=== PATIENT | female | born 1940 | race Caucasian/White ===

== ENCOUNTER 2019-12-11 09:39 | Outpatient (RCR) | payer MEDICARE, SELFPAY ==
--- NOTE | 2019-12-11 12:16 | PTOPEVAL ---
Thank you for referring this patient to [facility]. Please review, sign, date and return this plan of care AMANDA. I agree with and certify that the following plan of care is medically necessary. Referring Physician Date Admitting Provider: Attending Provider: PHYSICIAN NOT ON STAFF Referring Provider: *PT Outpatient Evaluation Start: 12/11/19 10:02 Freq: Status: Active Protocol: Document 12/11/19 10:00 ANDREINA (Rec: 12/11/19 12:12 ANDREINA [id number]) Therapy Assessment Status Assessment Status Assessment Status Evaluation Evaluation Information Problem Diagnosis gait abnormality Onset 11/28/19 Subjective Information patient has been having pain Query Text:As Reported By Patient/ in the hips and knees for Family years due to arthritis. she is a poor historian due to her history of alzheimers. her daughter is with her answering questions this date. she reports she is getting mixed reports on the correct path for her moms knee pain. she reports she does have a history of falls recently. she reports she is unable to walk or bear weight due to severe increased R knee pain. she reports she has had a weight gain of 50-100lbs from a medication change. Prior Level of Function Comments Additional Prior Level of Function patient attempts to walk Comments without any ad. she lives at home with her . she reports she does have a history of falls. Pain Assessment Timing of Pain Assessment Timing of Pain Assessment Assessment Pain Scale Pain Scale Used Numeric (1 - 10) Self Report Pain Assessment Right Knee(s) Reported Pain Level 0 Greatest Pain Intensity 8 Pain Score Pain Score 0: Self Report Lower Extremity Muscle Strength Testing General Lower Extremity Strength Gross Lower Extremity Strength patient performs sit to stand transfers with the use and need for upper extremity push off. patient presents with inability to achieve full terminal knee extension of the bilateral LE's
--- NOTE | 2019-12-18 10:05 | PCPTNOTE ---
patient cancelled appt today. MAGDALENE
--- NOTE | 2020-01-01 11:51 | PCPTNOTE ---
01/01/20-pt cancelled today's apt, and stated she would call back next week to reschedule. -.
== END 2019-12-27 17:00 | disposition home or self-care (01) ==
LOC: CHSPT 09:39
DX: R26.9 Unspecified abnormalities of gait and mobility (principal)
CPT/HCPCS: 97110; 97163; 97530

== ENCOUNTER 2020-07-16 08:15 | Outpatient (CLI) | payer MEDICARE, SELFPAY ==
[2020-07-17 01:35] LABS: SARS-CoV-2 RNA PCR Negative
== END 2020-07-16 08:16 | disposition home or self-care (01) ==
PROVIDERS: PCP Internal Medicine Geriatric Medicine; Visit Provider Internal Medicine Geriatric Medicine
DX: Z20.828 Contact with and (suspected) exposure to other viral communicable diseases (principal)
CPT/HCPCS: 87635; C9803; U0003

== ENCOUNTER 2020-12-19 14:47 | Outpatient (CLI) | payer MEDICARE, SELFPAY ==
[2020-12-19 15:01] LABS: Add Urine Microscopic? NO; Appearance Urine Clear (Clear); Bilirubin Urine Negative (Negative); Blood Urine Negative (Negative); Color Urine Yellow (Yellow); Glucose Urine UA Negative (Negative); Ketones Urine Negative (Negative); Leukocyte Esterase Ur Negative LEU/UL (Negative); Nitrate Urine Negative (Negative); Protein Urine Negative (Negative); Urobilinogen Urine 0.2 mg/dL (0.2-1.0); pH Urine 6.5 (5.0-8.0)
== END 2020-12-19 14:48 | disposition home or self-care (01) ==
LOC: CHSLAB 14:50
PROVIDERS: PCP Internal Medicine Geriatric Medicine; Visit Provider Emergency Medicine
DX: R35.0 Frequency of micturition (principal); R39.15 Urgency of urination; R32 Unspecified urinary incontinence
CPT/HCPCS: 81003

== ENCOUNTER 2021-02-04 21:42 | Outpatient (NON) | payer MEDICARE, SELFPAY ==
[2021-02-04 21:53] LABS: Add Urine Microscopic? YES; Appearance Urine Clear (Clear); Bilirubin Urine Negative (Negative); Blood Urine 1+ (Negative); Color Urine Yellow (Yellow); Glucose Urine UA Negative (Negative); Ketones Urine Negative (Negative); Leukocyte Esterase Ur Negative (Negative); Nitrate Urine Negative (Negative); Protein Urine Negative (Negative); Urobilinogen Urine 0.2 mg/dL (0.2-1.0); pH Urine 5.5 (5.0-8.0)
[2021-02-04 21:58] LABS: Squamous Epithelial Cell Urine Rare /hpf (Few); WBC Urine 0-3 /hpf (0-3)
[2021-02-04 21:59] LABS: Bacteria Urine Trace /hpf
== END 2021-02-04 21:43 | disposition home or self-care (01) ==
LOC: CHSLAB 21:44
PROVIDERS: Visit Provider Internal Medicine Geriatric Medicine
DX: R30.0 Dysuria (principal)
CPT/HCPCS: 81001; 87086

== ENCOUNTER 2021-03-13 10:24 | Inpatient (IN) | payer MEDICARE, SELFPAY ==
[2021-03-13] VITALS (19 sets, daily range): BP systolic 115–158; BP diastolic 55–94; PULSE 85–115; RESP 18–40; TEMP 36.3–38.3; O2SAT 90–98; BMI 36.3
--- NOTE | ~2021-03-13 | CT_ITS ---
EXAMINATION: CT chest abdomen pelvis w con DATE: 03/13/2021 12:36 INDICATION: Lactic acidosis. Leukocytosis. Nausea and vomiting. TECHNIQUE: Computed tomography (CT) of the chest, abdomen, and pelvis was performed with 100 mL Omnip aque 350 intravenous contrast. Automated exposure control and iterative reconstruction technique were employed. The dose-length product was 1657.44 mGy-cm. COMPARISON: None FINDINGS: CHEST CT: There are patchy airspace and groundglass opacities in the lower lobes and right middle lobe. There i s mild atelectasis in the upper lobes. No pleural effusion. There is a 12 mm nodule in left thyroid l obe, likely not clinically significant. The heart size is normal. There is a left chest wall pacer wi th leads in the right atrium and right ventricle. No pericardial effusion. There is moderate thoracic spondylosis and severe cervical spondylosis. ABDOMEN/PELVIS CT: The liver is normal. There are changes of cholecystectomy. There is a small sliding hiatal hernia. Th e spleen, pancreas, and adrenal glands are normal. There are cysts in the kidneys measuring up to 9.8 cm on the right. There is a large volume of stool in the colon. There are no dilated loops of bowel. The appendix is normal. There are no pathologically enlarged lymph nodes. There is no free intraperi toneal fluid. There is a total left hip arthroplasty. There is severe lumbar spondylosis. IMPRESSION: 1. Patchy airspace and groundglass opacities in the lower lobes and right middle lobe, consistent wit h pneumonia. 2. Small sliding hiatal hernia. Reviewed, dictated and finalized at location A. IMPRESSION: 1. Patchy airspace and groundglass opacities in the lower lobes and right middl e lobe, consistent with pneumonia. 2. Small sliding hiatal hernia.
--- NOTE | ~2021-03-13 | XR_ITS ---
EXAMINATION: XR chest 1V portable DATE: 03/13/2021 10:59 INDICATION: Aspiration pneumonia. TECHNIQUE: A single frontal view of the chest was obtained. COMPARISON: None. FINDINGS: There is mild scarring at the lung apices. There are mild airspace opacities in the mid and lower lung zones, worst at left lung base. There is a small left pleural effusion. No pneumothorax. The heart size is normal. There is a left chest wall pacer with leads in the right atrium and right v entricle. IMPRESSION: 1. Mild airspace opacities in the lower lung zones, consistent with atelectasis versus pneumonia. 2. Small left pleural effusion. Reviewed, dictated and finalized at location A.
[2021-03-13 11:07] LABS: Basophils Percent Auto 0.2 % (0.2-1.2); Eosinophils Percent Auto 0.1 % (0-4.4); Hematocrit 39.8 % (37.0-47.0); Hemoglobin 13.3 g/dL (12.0-15.0); Immature Granulocyte Absolute 0.04 K/mm3 (0.00-0.031); Immature Granulocyte Percent A 0.3 % (0-0.5); Lymphocytes Percent Auto 2.5 % (18.3-44.2); Mean Corpuscular HGB Conc 33.4 g/dl (32-36); Mean Corpuscular Hemoglobin 29.2 pg (26-34); Mean Corpuscular Volume 87.5 fl (80-100); Mean Platelet Volume 10.3 fl (7.4-10.4); Monocytes Absolute Auto 0.5 K/mm3 (0.1-0.6); Monocytes Percent Auto 3.8 % (2.6-8.5); Neutrophils Absolute Auto 11.4 K/mm3 (1.3-6.7); Neutrophils Percent Auto 93.1 % (45.5-73.1); Platelet Count Result 284 k/mm3 (150-375); Red Blood Count 4.55 M/mm3 (4.2-5.4); Red Cell Distribution Width 13.2 % (11.5-14.5); White Blood Count 12.2 K/mm3 (4.5-10.0)
[2021-03-13 11:14] LABS: Add Urine Microscopic? YES; Appearance Urine Clear (Clear); Bilirubin Urine Negative (Negative); Blood Urine 2+ (Negative); Color Urine Yellow (Yellow); Glucose Urine UA Negative (Negative); Ketones Urine Negative (Negative); Leukocyte Esterase Ur Negative LEU/UL (Negative); Mucus Urine Rare /lpf; Nitrate Urine Negative (Negative); Protein Urine 1+ mg/dL (Negative); Specific Grav Ur 1.024 (1.001-1.035); Squamous Epithelial Cell Urine Few /hpf (Few); Urobilinogen Urine Negative mg/dL (<2.0); WBC Urine 0-3 /hpf
[2021-03-13 11:20] LABS: Prothrombin Time 13.3 Seconds (11.1-14.7)
[2021-03-13 11:21] LABS: Lactic Acid Reflex 4.4 mmol/L (0.7-2.1)
[2021-03-13 11:22] LABS: Partial Thromboplastin Time 27.8 SECONDS (22.3-36.8)
[2021-03-13 11:25] LABS: Alanine Aminotransferase 22 U/L (4-35); Albumin Level 4.3 g/dL (3.5-5.1); Alkaline Phosphatase 70 U/L (38-126); Anion Gap 12 mmol/L (8-16); Aspartate Amino Transferase 28 U/L (14-36); Bilirubin,Total 0.5 mg/dL (0.2-1.3); Blood Urea Nitrogen 22 mg/dL (7-17); CRP 3.7 mg/dL (<1.0); Calcium 8.7 mg/dL (8.4-10.2); Carbon Dioxide 22 mmol/L (22-30); Chloride 100 mmol/L (98-107); Estimated CRCL calculation 56 ml/min; Estimated Glomerular Filt Rate > 60; Glucose 124 mg/dL (65-105); Potassium 3.6 mmol/L (3.4-5.0); Sodium 134 mmol/L (137-145)
--- NOTE | 2021-03-13 12:08 | ECG_ITS ---
Measurements Intervals [place] Rate: 96 P: 38 NV: 183 QRS: 7 QRSD: 97 T: 44 QT: 335 QTc: 423 Interpretive Statements SINUS RHYTHM BORDERLINE R WAVE PROGRESSION, ANTERIOR LEADS BORDERLINE ST-T WAVE ABNORMALITY- ANT/INF LEADS BASELINE ARTIFACT- II, III, AVR, AVL, AVF BORDERLINE ECG Electronically Signed On 03-13-2021 15:10:39 CDT by Aly Cottrell D.O.
--- NOTE | 2021-03-13 12:09 | ED.GENADULT ---
HPI - General Adult General Chief complaint: Nausea/Vomiting/Diarrhea <KARTIK Churchill BC - Last Filed: 03/13/21 14:17> Stated complaint: N/V/FEVER <KARTIK Churchill BC - Last Filed: 03/13/21 14:17> Time Seen by Provider: 03/13/21 11:38 <KARTIK Churchill BC - Last Filed: 03/13/21 14:17> Source: family <KARTIK Churchill BC - Last Filed: 03/13/21 14:17> Limitations: no limitations <KARTIK Churchill BC - Last Filed: 03/13/21 14:17> History of Present Illness HPI narrative: Patient presents for evaluation of nausea and vomiting that started last night around 1930. She is here in the company of her daughter who serves as primary historian. Patient has underlying Alzheimer's and cannot provide me with any details related to her history. Daughter indicates that patient's baseline orientation services oriented to person. Patient has not answered any questions for her daughter since last night. Patient and her live at home and have 24-hour supervision with caretakers. Daughter was contacted last evening as pt had multiple episodes of vomiting. When patient's daughter arrived at the home temperature was 100.3 ?F, which increased to 101.8F an hour later. Indicates that patient has had 13 episodes of vomiting since last night. She has not been able to tell daughter whether she is experiencing any abdominal pain. Daughter states that pt and her consumed the same food for dinner and pt's is asymptomatic. Last bowel movement was last night, solid, large in size. Daughter states that patient has a history of arthritis, for which she was taking ibuprofen. Patient subsequently developed symptoms consistent with GERD and was placed on PPI. Ibuprofen was held and then restarted at lower dose and frequency. Daughter gave pt tylenol last night and she had not had any antipyretics today. Pt is past due for colonoscopy but her provider advised against pursuing at this stage of her life as her last colonoscopy was normal and there was concern for how pt would tolerate anesthesia with hx of Alzheimer's. Daughter states that pt had some chest pain last night but it was thought that her symptoms were 2/2 GERD. <KARTIK Churchill BC - Last Filed: 03/13/21 14:17> Related Data Home medications: Home Medications Medication Instructions Recorded Confirmed acetaminophen 500 mg PO Q6H PRN 03/13/21 03/13/21 ascorbic acid (vitamin C) 1 g PO DAILY 03/13/21 03/13/21 calcium carbonate-vitamin D3 1 tablet PO DAILY 03/13/21 03/13/21 [Calcium 500 + D] escitalopram oxalate 20 mg PO DAILY 03/13/21 03/13/21 nortriptyline 50 mg PO DAILY 03/13/21 03/13/21 oxycodone 5 mg PO PRN 03/13/21 03/13/21 pantoprazole 40 mg PO DAILY 03/13/21 03/13/21 risperidone 0.5 mg PO DAILY 03/13/21 03/13/21 <KARTIK Churchill BC - Last Filed: 03/13/21 14:17> Allergies/adverse reactions: Allergies Allergy/AdvReac Type Severity Reaction Status Date / Time donepezil Allergy Rash Verified 03/13/21 11:03 <KARTIK Churchill BC - Last Filed: 03/13/21 14:17> Review of Systems Review of Systems: ROS unobtainable: Yes unobtainable due to mental status <KARTIK Churchill BC - Last Filed: 03/13/21 14:17> [facility] Past Medical History Medical History: Medical History Alzheimer's dementia Arthritis GERD (gastroesophageal reflux disease) <KARTIK Churchill BC - Last Filed: 03/13/21 14:17> Social History Social History: Social History Substance use: never Living arrangements: with family Gender identity (if verbalized by the patient): Female Sexual Orientation (if Verbalized by the Patient): Straight or Heterosexual <KARTIK Churchill BC - Last Filed: 03/13/21 14:17> Exam Narrative: Exam Narrative: GENERAL:
[2021-03-13] MEDS: SODIUM CHLORIDE 0.9% IV 500 ML 999 ML IV CONT ×2 (12:25→14:50)
[2021-03-13] MEDS: SODIUM CHLORIDE 0.9% IV 1,000 ML 999 ML (12:26)
[2021-03-13 13:05] LABS: Troponin I < 0.012 ng/mL (0.000-0.034)
[2021-03-13] MEDS: ACETAMINOPHEN 325 MG TABLET 650 MG PO (13:12)
[2021-03-13 14:03] LABS: Reflex Lactic Acid Yes or No Add Lactic
[2021-03-13 14:43] LABS: Lactic Acid 2.6 mmol/L (0.7-2.1)
--- NOTE | 2021-03-13 14:45 | PM.IMHP ---
H&P: HPI History of Present Illness Date/Time: 03/13/21 14:45 Chief Complaint: Fever. Narrative: This is a 80-year-old female who is otherwise quite healthy aside from dementia who presented to the emergency department earlier today via EMS from home for evaluation of a fever. Due to her dementia she is unable to provide a history and as such all of the following is obtained via a review of her electronic medical records as well as discussions with her daughter, Jane Land, who is at bedside. Jane is also her power of deputy commonwealth's attorney. Unfortunately both the patient and her suffer from dementia and over the last several months they have had caretakers at home 24 hours a day. At baseline the patient is pleasant and cooperative but is quite forgetful and repetitive. She ambulates with a walker with gait belt and 1 assist. These past few weeks Jane has noticed that the patient seems to have increasing issues with word finding and is a bit more forgetful and at times paranoid. Sometime last evening she began vomiting and she reportedly had 13 episodes of emesis throughout the night. This morning she spiked a temperature to 101.8? Fahrenheit and she was brought in for evaluation. On arrival to the emergency department she was tachycardic, tachypneic, and febrile and meets criteria for severe sepsis. Her urinalysis was unremarkable and chest x-ray demonstrated findings of atelectasis versus pneumonia. A subsequent CT of the chest, abdomen, and pelvis showed patchy airspace ground-glass opacities in the lower lobes and right middle lobe consistent with pneumonia. Daughter Jane, who is a registered nurse, thinks that the patient may very well have aspirated last night with all of the vomiting. She has not noticed her mother having issues with eating or drinking and does not believe that she has had issues with dysphagia at home. She has not had any sick contacts and all family members and caretakers have been vaccinated for COVID-19, including the patient. At the time my evaluation the patient has no complaints but she takes a long time to process my questions and a majority of the questions asked of her go unanswered. Caregivers and family members have not notice her coughing or sneezing. No mention of diarrhea. Of note the patient was hospitalized at [place] in early 2020 for a left wrist fracture that was repaired and at that time she had issues with delirium and frequently attempted to get out of the bed, mainly during the nighttime. Review of Systems Review of Systems: Narrative: A review of systems was attempted but unable to be completed accurately given her underlying dementia and clinical condition as detailed in HPI. [facility] Past Medical History Medical History (Updated 03/13/21 @ 17:00 by Cristina Chaney PA-C) Alzheimer's dementia History of delirium related to hospitalizations. Arthritis Severe arthritis of right knee and hip. Gastroesophageal reflux disease History of anxiety Surgical History Surgical History (Updated 03/13/21 @ 16:52 by Cristina Chaney PA-C) History of cardiac pacemaker History of cholecystectomy History of surgery on left wrist (~11/2020) ORIF left wrist fracture performed at [place]. History of tonsillectomy Family History Family History (Updated 03/13/21 @ 16:53 by Cristina Chaney PA-C) Father Chronic lymphocytic leukemia Mother Liver failure Arthritis Social History Social History (Updated 03/13/21 @ 16:55 by Cristina Chaney PA-C) Social History: The patient is and lives with her in [place], [place]. They have 3 grown children. Caretakers are in the home 24 hours a day. She ambulates with a walker and gait belt with 1 assist. 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 Lifelong nonsmoker. No alcohol or illicit substance use. Her daughter Jane Land is her healthcare power of deputy commonwealth's attorney. Code status: Full cod
[2021-03-13 15:33] LABS: Troponin I < 0.012 ng/mL (0.000-0.034)
--- NOTE | 2021-03-13 18:39 | PC.NURSE ---
This patient, Kimmie Li, was admitted to IMU Room 205-01. Patient/family oriented to hospital policies and general routines including ID bracelet, bed and alarms, visiting hours, pain management, procedures, bathroom and other care routines, personal items, smoking policy, room service/diet, and visiting hours. Information on how to activate the Rapid Response Team has been discussed. Patient/Family are encouraged to report perceived risks to care and to ask questions if they do not understand what they are told or what they should do.
[2021-03-13] MEDS: risperiDONE 0.5 MG TABLET PO (20:38)
[2021-03-13] MEDS: NORTRIPTYLINE HCL 25 MG CAPSULE 50 MG PO (20:39)
[2021-03-13] MEDS: MELATONIN 5 MG TABLET 10 MG PO (20:42)
[2021-03-13] MEDS: guaiFENesin 12 HR 600 MG TABCR PO (20:42)
[2021-03-13] MEDS: DOCUSATE SODIUM 100 MG CAPSULE PO (20:43)
[2021-03-14] VITALS (12 sets, daily range): BP systolic 131–170; BP diastolic 66–74; PULSE 75–98; RESP 14–20; TEMP 36.1–36.9; O2SAT 93–98
[2021-03-14 06:03] LABS: Basophils Percent Auto 0.1 % (0.2-1.2); Eosinophils Absolute Auto 0.2 K/mm3 (0-0.3); Eosinophils Percent Auto 1.2 % (0-4.4); Hematocrit 34.3 % (37.0-47.0); Hemoglobin 11.6 g/dL (12.0-15.0); Immature Granulocyte Absolute 0.04 K/mm3 (0.00-0.031); Immature Granulocyte Percent A 0.3 % (0-0.5); Lymphocytes Absolute Auto 1.15 K/mm3 (0.9-3.2); Lymphocytes Percent Auto 8.5 % (18.3-44.2); Mean Corpuscular HGB Conc 33.8 g/dl (32-36); Mean Corpuscular Hemoglobin 29.4 pg (26-34); Mean Corpuscular Volume 86.8 fl (80-100); Monocytes Absolute Auto 0.8 K/mm3 (0.1-0.6); Monocytes Percent Auto 5.9 % (2.6-8.5); Neutrophils Absolute Auto 11.4 K/mm3 (1.3-6.7); Platelet Count Result 258 k/mm3 (150-375); Red Blood Count 3.95 M/mm3 (4.2-5.4); Red Cell Distribution Width 13.1 % (11.5-14.5); White Blood Count 13.5 K/mm3 (4.5-10.0)
[2021-03-14 06:18] LABS: Anion Gap 5 mmol/L (8-16); Blood Urea Nitrogen 13 mg/dL (7-17); Calcium 8.5 mg/dL (8.4-10.2); Carbon Dioxide 28 mmol/L (22-30); Chloride 103 mmol/L (98-107); Estimated CRCL calculation 57 ml/min; Estimated Glomerular Filt Rate > 60; Glucose 112 mg/dL (65-105); Magnesium 1.9 mg/dL (1.6-2.3); Potassium 3.7 mmol/L (3.4-5.0); Sodium 136 mmol/L (137-145)
--- NOTE | 2021-03-14 08:12 | PCOTNOTE ---
Attempted OT evaluation. Per nursing, pt sleeping and requested therapy try later. Will continue to attempt.
--- NOTE | 2021-03-14 08:14 | PCPTNOTE ---
Attempted PT evaluation. Per nursing, pt sleeping and requested therapy try later. Will try again at a later date/time.
--- NOTE | 2021-03-14 11:45 | PM.IMPN ---
Progress Note: A&P Assessment and Plan (1) Bilateral pneumonia: Qualifiers: Pneumonia type: aspiration pneumonia Aspiration pneumonia type: unspecified Lung location: lower lobe of lung Qualified Code(s): J69.0 - Pneumonitis due to inhalation of food and vomit Code(s): J18.9 - Pneumonia, unspecified organism Status: Acute Assessment and Plan: 03/13 Zosyn begun in the ED 03/14 switched to Unasyn and consider discharge on Augmentin if she continues to improve (2) Alzheimer's dementia: Qualifiers: Alzheimer's disease onset: late-onset Dementia behavioral disturbance: with behavioral disturbance Qualified Code(s): G30.1 - Alzheimer's disease with late onset; F02.81 - Dementia in other diseases classified elsewhere with behavioral disturbance Code(s): G30.9 - Alzheimer's disease, unspecified; F02.80 - Dementia in other diseases classified elsewhere without behavioral disturbance Status: Acute Assessment and Plan: Discussed with son the given her history of hospital do's delirium it would be best to planned for early discharge perhaps 03/15 (3) Sepsis: Qualifiers: Sepsis acute organ dysfunction status: without acute organ dysfunction Sepsis type: sepsis due to unspecified organism Qualified Code(s): A41.9 - Sepsis, unspecified organism Code(s): A41.9 - Sepsis, unspecified organism Status: Acute Assessment and Plan: Resolved (4) Gastroesophageal reflux disease: Qualifiers: Esophagitis presence: esophagitis presence not specified Qualified Code(s): K21.9 - Gastro-esophageal reflux disease without esophagitis Code(s): K21.9 - Gastro-esophageal reflux disease without esophagitis Status: Acute Assessment and Plan: Continue home regimen Subjective Date/time seen: 03/14/21 11:45 Interval history: Admitted 03/14 with probable aspiration pneumonia. 03/14: Nonverbal. No issues reported overnight. Son at bedside. D/w staffing account manager. Review of Systems Review of Systems: ROS unobtainable: Yes unobtainable due to medical condition Exam Narrative: Exam Narrative: HEENT: EOMI, PERRL, sclerae nonicteric, pharyngeal mucosa pink and intact NECK: No JVD CHEST: Slightly coarse BS bilateral LLs. Normal effort. HEART: NL S1/S2, regular, no murmur ABDOMEN: BS+, soft, nontender, no mass, no bruits EXTREMITIES: No cyanosis, edema, or clubbing NEUROLOGIC: CN intact and symmetric to inspection. MUSCULOSKELETAL: Tone and strength symmetric. PSYCH: Drowsy. Follows simple commands. Oriented to person only. Objective Data Vital Signs Vital Signs: Vital Signs - 24 hr 03/13/21 12:00 03/13/21 12:15 03/13/21 12:45 Temperature Pulse Rate 114 H 103 H 98 Respiratory Rate 28 H 25 H 29 H Blood Pressure 123/83 130/66 115/63 Pulse Oximetry 92 91 94 03/13/21 14:08 03/13/21 14:09 03/13/21 15:26 Temperature 98.4 F Pulse Rate 97 93 Respiratory Rate 18 18 Blood Pressure 115/63 132/63 Pulse Oximetry 98 95 03/13/21 15:51 03/13/21 16:00 03/13/21 18:00 Temperature 97.3 F L Pulse Rate 91 92 91 Respiratory Rate 18 18 Blood Pressure 119/55 L Pulse Oximetry 92 92 03/13/21 20:00 03/13/21 22:00 03/13/21 23:44 Temperature 97.5 F L 97.7 F Pulse Rate 91 85 86 Respiratory Rate 18 18 Blood Pressure 136/85 120/57 L Pulse Oximetry 95 94 03/14/21 00:00 03/14/21 02:00 03/14/21 03:59 Temperature 97.6 F Pulse Rate 85 79 81 Respiratory Rate 18 20 Blood Pressure 142/73 H Pulse Oximetry 94 95 03/14/21 04:00 03/14/21 06:00 03/14/21 07:17 Temperature 97.3 F L Pulse Rate 80 88 75 Respiratory Rate 20 18 Blood Pressure 155/66 H Pulse Oximetry 95 97 03/14/21 08:00 03/14/21 10:00 03/14/21 10:05 Temperature Pulse Rate 77 75 Respiratory Rate 18 Blood Pressure Pulse Oximetry 97 94 Intake/Output Intake/Output: Intake & Output 03/11/21 03/12/21 03/13/21 03/14/21 23
[2021-03-14] MEDS: ASCORBIC ACID 500 MG TABLET 1000 MG PO (11:52)
[2021-03-14] MEDS: guaiFENesin 12 HR 600 MG TABCR PO ×2 (11:52→23:02)
[2021-03-14] MEDS: ESCITALOPRAM OXALATE 10 MG TABLET 20 MG PO (11:52)
[2021-03-14] MEDS: PANTOPRAZOLE 40 MG TABLET PO (11:53)
[2021-03-14] MEDS: AMPICILLIN SULB 3 GM/NS 100 ML 3 GM/100 ML VIAL IVPB ×3 (13:26→23:03)
--- NOTE | 2021-03-14 16:15 | PC.NURSE ---
This patient, Kimmie Li, was received from [imu ] on 03/14/21 at 1742. Patient/family oriented to unit policies and routines
--- NOTE | 2021-03-14 16:21 | PC.NURSE ---
This patient, Kimmie Li, was transferred to [[facility] ] on 03/14/21 at 1621. Personal belongings sent with patient. Report given to [Lainey ]. Appropriate documentation sent with patient.
[2021-03-14] MEDS: MELATONIN 5 MG TABLET 10 MG PO (23:02)
[2021-03-14] MEDS: risperiDONE 0.5 MG TABLET PO (23:02)
[2021-03-14] MEDS: DOCUSATE SODIUM 100 MG CAPSULE PO (23:02)
[2021-03-14] MEDS: NORTRIPTYLINE HCL 25 MG CAPSULE 50 MG PO (23:02)
[2021-03-15 05:23] VITALS: BP 154/70; PULSE 82; RESP 18; TEMP 36; O2SAT 95
[2021-03-15 06:14] LABS: Hematocrit 37.4 % (37.0-47.0); Hemoglobin 12.3 g/dL (12.0-15.0); Mean Corpuscular HGB Conc 32.9 g/dl (32-36); Mean Corpuscular Volume 88.2 fl (80-100); Mean Platelet Volume 10.3 fl (7.4-10.4); Platelet Count Result 284 k/mm3 (150-375); Red Blood Count 4.24 M/mm3 (4.2-5.4); Red Cell Distribution Width 13.1 % (11.5-14.5); White Blood Count 10.4 K/mm3 (4.5-10.0)
[2021-03-15 06:32] LABS: Anion Gap 9 mmol/L (8-16); Blood Urea Nitrogen 12 mg/dL (7-17); Calcium 8.9 mg/dL (8.4-10.2); Carbon Dioxide 26 mmol/L (22-30); Chloride 102 mmol/L (98-107); Estimated CRCL calculation 73 ml/min; Estimated Glomerular Filt Rate > 60; Glucose 104 mg/dL (65-105); Potassium 3.5 mmol/L (3.4-5.0); Sodium 137 mmol/L (137-145)
[2021-03-15] MEDS: AMPICILLIN SULB 3 GM/NS 100 ML 3 GM/100 ML VIAL IVPB ×4 (06:55→23:59)
[2021-03-15] MEDS: PANTOPRAZOLE 40 MG TABLET PO (09:04)
[2021-03-15] MEDS: guaiFENesin 12 HR 600 MG TABCR PO ×2 (09:05→20:35)
[2021-03-15] MEDS: ASCORBIC ACID 500 MG TABLET 1000 MG PO (09:05)
[2021-03-15] MEDS: ESCITALOPRAM OXALATE 10 MG TABLET 20 MG PO (09:05)
--- NOTE | 2021-03-15 10:54 | PM.IMPN ---
Progress Note: A&P Assessment and Plan (1) Sepsis: Qualifiers: Sepsis acute organ dysfunction status: without acute organ dysfunction Sepsis type: sepsis due to unspecified organism Qualified Code(s): A41.9 - Sepsis, unspecified organism Code(s): A41.9 - Sepsis, unspecified organism Status: Acute Assessment and Plan: The patient is a 80-year-old woman with a history of dementia, who presented to the emergency room with nausea, vomiting overnight. Given the patient's daughter arrived to further evaluate her at the house she found her temperature was elevated 101.8? inside to bring her to the emergency room for further evaluation. Patient was found to have a fever, tachycardic, increased respiratory rate, elevated blood pressure 142/69, and pulse ox was 93% on room air. Leukocytosis 12,200 , elevated neutrophils, hyponatremia at 134, Cr 0.7, elevated BUN 22, Lactic 4.4, improved 2.6 with IV fluid hydration. Elevated CRP 3.7. Troponin normal x2. UA showing microscopic blood and RBCs but no infection. CT Chest/Abd/Pelvis showed Patchy airspace and groundglass opacities in the lower lobes and right middle lobe, consistent with pneumonia. The patient was admitted and started on IV Zosyn for aspiration pneumonia. 03/14/21, the patient was switched to IV Unasyn for a broader spectrum of coverage for Aspiration. The patient was evaluated today and is still having some productive cough, history hard to be obtained secondary to Alzheimers. Will continue on IV Unasyn overnight, recheck labs in the morning, continue monitoring vital signs and possibly discharge home tomorrow with care givers and family. The patient and Daughter Jane understand and agree with the plan. All questions answered. (2) Bilateral pneumonia: Qualifiers: Pneumonia type: aspiration pneumonia Aspiration pneumonia type: unspecified Lung location: lower lobe of lung Qualified Code(s): J69.0 - Pneumonitis due to inhalation of food and vomit Code(s): J18.9 - Pneumonia, unspecified organism Status: Acute Assessment and Plan: 03/13 Zosyn begun in the ED 03/14 switched to Unasyn 03/15 continue Unasyn at this time. Consider discharge on Augmentin if she continues to improve (3) Gastroenteritis: Code(s): K52.9 - Noninfective gastroenteritis and colitis, unspecified Status: Acute Assessment and Plan: No more N/V or symptoms of Abd pain/diarrhea. Resolved. (4) Alzheimer's dementia: Qualifiers: Alzheimer's disease onset: late-onset Dementia behavioral disturbance: with behavioral disturbance Qualified Code(s): G30.1 - Alzheimer's disease with late onset; F02.81 - Dementia in other diseases classified elsewhere with behavioral disturbance Code(s): G30.9 - Alzheimer's disease, unspecified; F02.80 - Dementia in other diseases classified elsewhere without behavioral disturbance Status: Acute Assessment and Plan: Continue Melatonin at night, sitter in the room and plan for discharge tomorrow. (5) Gastroesophageal reflux disease: Qualifiers: Esophagitis presence: esophagitis presence not specified Qualified Code(s): K21.9 - Gastro-esophageal reflux disease without esophagitis Code(s): K21.9 - Gastro-esophageal reflux disease without esophagitis Status: Acute Assessment and Plan: Continue home regimen Time Spent With Patient Time with patient: 25 - 35 minutes Subjective Date/time seen: 03/15/21 10:54 Interval history: Date of Service 03/15/21: Review of Systems Review of Systems: All systems reviewed & are unremarkable except as noted in HPI and below Exam Narrative: Exam Narrative: General: 80-year-old woman sitting up in bed, with sitter in the room. Appears comfortable. In no acute distress. Skin: No jaundice or cyanosis. Good skin turgor. Neck: Full range of motion. Supple. Respiratory: Inspiratory rhonchi to
[2021-03-15 14:22] VITALS: BP 137/84; PULSE 86; RESP 18; TEMP 36.2; O2SAT 97
[2021-03-15 19:53] VITALS: BP 160/82; PULSE 82; RESP 18; TEMP 36.3; O2SAT 93
[2021-03-15] MEDS: risperiDONE 0.5 MG TABLET PO (20:36)
[2021-03-15] MEDS: MELATONIN 5 MG TABLET 10 MG PO (20:36)
[2021-03-15] MEDS: NORTRIPTYLINE HCL 25 MG CAPSULE 50 MG PO (20:36)
[2021-03-15] MEDS: DOCUSATE SODIUM 100 MG CAPSULE PO (20:36)
[2021-03-16 05:20] VITALS: BP 158/78; PULSE 82; RESP 18; TEMP 36.2; O2SAT 97
[2021-03-16 05:40] LABS: Basophils Percent Auto 0.3 % (0.2-1.2); Eosinophils Absolute Auto 0.3 K/mm3 (0-0.3); Eosinophils Percent Auto 2.8 % (0-4.4); Hematocrit 34.5 % (37.0-47.0); Hemoglobin 11.3 g/dL (12.0-15.0); Immature Granulocyte Absolute 0.04 K/mm3 (0.00-0.031); Immature Granulocyte Percent A 0.4 % (0-0.5); Lymphocytes Absolute Auto 1.41 K/mm3 (0.9-3.2); Lymphocytes Percent Auto 14.7 % (18.3-44.2); Mean Corpuscular HGB Conc 32.8 g/dl (32-36); Mean Corpuscular Hemoglobin 28.5 pg (26-34); Mean Corpuscular Volume 87.1 fl (80-100); Mean Platelet Volume 10.4 fl (7.4-10.4); Monocytes Absolute Auto 0.8 K/mm3 (0.1-0.6); Monocytes Percent Auto 8.2 % (2.6-8.5); Neutrophils Absolute Auto 7.1 K/mm3 (1.3-6.7); Neutrophils Percent Auto 73.6 % (45.5-73.1); Platelet Count Result 309 k/mm3 (150-375); Red Blood Count 3.96 M/mm3 (4.2-5.4); White Blood Count 9.6 K/mm3 (4.5-10.0)
[2021-03-16] MEDS: AMPICILLIN SULB 3 GM/NS 100 ML 3 GM/100 ML VIAL IVPB ×2 (05:44→12:17)
[2021-03-16 05:54] LABS: Anion Gap 7 mmol/L (8-16); Blood Urea Nitrogen 9 mg/dL (7-17); Calcium 8.7 mg/dL (8.4-10.2); Carbon Dioxide 27 mmol/L (22-30); Chloride 103 mmol/L (98-107); Estimated CRCL calculation 55 ml/min; Estimated Glomerular Filt Rate > 60; Glucose 102 mg/dL (65-105); Magnesium 1.9 mg/dL (1.6-2.3); Potassium 3.5 mmol/L (3.4-5.0); Sodium 137 mmol/L (137-145)
[2021-03-16 08:00] VITALS: BP 146/72; PULSE 90; RESP 18; TEMP 36.3; O2SAT 96
[2021-03-16] MEDS: guaiFENesin 12 HR 600 MG TABCR PO (10:03)
[2021-03-16] MEDS: ESCITALOPRAM OXALATE 10 MG TABLET 20 MG PO (10:03)
[2021-03-16] MEDS: ASCORBIC ACID 500 MG TABLET 1000 MG PO (10:03)
[2021-03-16] MEDS: PANTOPRAZOLE 40 MG TABLET PO (10:04)
--- NOTE | 2021-03-16 10:32 | PM.DS ---
DS: Admitting Diagnosis Admitting Diagnosis Admitting Diagnosis: Fever DS: Discharge Diagnosis Discharge Diagnosis (1) Sepsis: Qualifiers: Sepsis acute organ dysfunction status: without acute organ dysfunction Sepsis type: sepsis due to unspecified organism Qualified Code(s): A41.9 - Sepsis, unspecified organism Code(s): A41.9 - Sepsis, unspecified organism Status: Acute Assessment and Plan: The patient is a 80-year-old woman with a history of dementia, who presented to the emergency room with nausea, vomiting overnight. Given the patient's daughter arrived to further evaluate her at the house she found her temperature was elevated 101.8? inside to bring her to the emergency room for further evaluation. Patient was found to have a fever, tachycardic, increased respiratory rate, elevated blood pressure 142/69, and pulse ox was 93% on room air. Leukocytosis 12,200 , elevated neutrophils, hyponatremia at 134, Cr 0.7, elevated BUN 22, Lactic 4.4, improved 2.6 with IV fluid hydration. Elevated CRP 3.7. Troponin normal x2. UA showing microscopic blood and RBCs but no infection. CT Chest/Abd/Pelvis showed Patchy airspace and groundglass opacities in the lower lobes and right middle lobe, consistent with pneumonia. The patient was admitted and started on IV Zosyn for aspiration pneumonia. 03/14/21, the patient was switched to IV Unasyn for a broader spectrum of coverage for Aspiration. The patient is feeling better at this time, WBC normalized, resting comfortably on room air, afebrile, nontachycardic. The patient is stable at this time to be discharged home to continue PO Augmentin for aspiration pneumonia from gastroenteritis/vomiting. The patients family understand and agree with the plan. She will be going home with 08/05 caregivers. Follow up with PCP. (2) Bilateral pneumonia: Qualifiers: Aspiration pneumonia type: unspecified Lung location: lower lobe of lung Pneumonia type: aspiration pneumonia Qualified Code(s): J69.0 - Pneumonitis due to inhalation of food and vomit Code(s): J18.9 - Pneumonia, unspecified organism Status: Acute (3) Gastroenteritis: Code(s): K52.9 - Noninfective gastroenteritis and colitis, unspecified Status: Acute Assessment and Plan: No more N/V or symptoms of Abd pain/diarrhea. Resolved. (4) Alzheimer's dementia: Qualifiers: Alzheimer's disease onset: late-onset Dementia behavioral disturbance: with behavioral disturbance Qualified Code(s): G30.1 - Alzheimer's disease with late onset; F02.81 - Dementia in other diseases classified elsewhere with behavioral disturbance Code(s): G30.9 - Alzheimer's disease, unspecified; F02.80 - Dementia in other diseases classified elsewhere without behavioral disturbance Status: Acute (5) Gastroesophageal reflux disease: Qualifiers: Esophagitis presence: esophagitis presence not specified Qualified Code(s): K21.9 - Gastro-esophageal reflux disease without esophagitis Code(s): K21.9 - Gastro-esophageal reflux disease without esophagitis Status: Acute DS: Summary Hospital Course Hospital Course: See above Status at Discharge Cognitive/behavioral status at discharge: Stable, improved. Time Spent with Patient Time attestation: Total time spent providing and/or coordinating discharge services: 37 Time spent: Greater than 30 minutes Exam Narrative: Exam Narrative: General: 80-year-old woman sitting up in bed eating breakfast. Appears comfortable. In no acute distress. Skin: No jaundice or cyanosis. Good skin turgor. Neck: Full range of motion. Supple. Respiratory: Improved, only slight inspiratory rhonchi to bilateral lower lung barker posteriorly. No wheezing. No bony chest wall tenderness. Cardiovascular: The heart has a regular rate and rhythm without murmur. Lower extremities: No lower extremity edema. Distal pulses are easily pal
[2021-03-16 16:00] VITALS: BP 142/73; PULSE 88; RESP 18; TEMP 36.5; O2SAT 97
--- NOTE | 2021-03-22 13:10 | PC.NURSE ---
Blood cx are negative.
== END 2021-03-16 16:50 | disposition home or self-care (01) | DRG 871 ==
LOC: ANHED 14:26 → ANHIMU 15:10 → ANH3MED 03-14 16:20
PROVIDERS: Emergency Medicine; Physician Assistant; Admitting Provider Internal Medicine; Emergency Provider Nurse Practitioner; PCP Internal Medicine Geriatric Medicine; Visit Provider Internal Medicine
DX: A41.9 Sepsis, unspecified organism (principal); J69.0 Pneumonitis due to inhalation of food and vomit; E87.1 Hypo-osmolality and hyponatremia; G30.9 Alzheimer's disease, unspecified; R65.20 Severe sepsis without septic shock; F02.80 Dementia in other diseases classified elsewhere, unspecified severity, without behavioral disturbance, psychotic disturbance, mood disturbance, and anxiety; K21.9 Gastro-esophageal reflux disease without esophagitis; F41.9 Anxiety disorder, unspecified; M17.11 Unilateral primary osteoarthritis, right knee; M16.11 Unilateral primary osteoarthritis, right hip; Z95.0 Presence of cardiac pacemaker; Z90.49 Acquired absence of other specified parts of digestive tract
CPT/HCPCS: 36415; 51701; 71045; 71260; 74177; 80048; 80053; 81001; 83605; 83735; 84484; 85025; 85027; 85610; 85730; 86140; 87040; 92610; 93005; 94667; 94668; 96365; 97110; 97162; 97165; 97530; 97535; 99285; A9270; J0295; J2543; J7030; J7040; Q9967

== ENCOUNTER 2021-04-28 13:08 | Inpatient (IN) | payer MEDICARE, SELFPAY ==
--- NOTE | 2021-04-28 14:00 | WPDPN ---
Progress Note: A&P Assessment and Plan (1) Weakness: Code(s): R53.1 - Weakness <MARISSA eCja - Last Filed: 04/28/21 14:31> Status: Acute <MARISSA Ceja - Last Filed: 04/28/21 14:31> Assessment and Plan: ? Exhibit tolerance during physical activity as evidenced by a normal fluctuation of vital signs during physical activity. ? Patient will be ability to perform required activities of daily living. ? Provide appropriate nutrition for healing and strength. ? Use appropriate to prevent falls. ? Continue physical therapy/occupational therapy. <MARISSA Ceja - Last Filed: 04/28/21 14:31> (2) Fracture of radial shaft, with ulna, left, open: Qualifiers: Encounter type: subsequent encounter Fracture healing: with routine healing Open fracture type: open type I or II Qualified Code(s): S52.302E - Unspecified fracture of shaft of left radius, subsequent encounter for open fracture type I or II with routine healing; S52.202E - Unspecified fracture of shaft of left ulna, subsequent encounter for open fracture type I or II with routine healing <MARISSA Ceja - Last Filed: 04/28/21 14:31> Code(s): S52.302B - Unspecified fracture of shaft of left radius, initial encounter for open fracture type I or II; S52.202B - Unspecified fracture of shaft of left ulna, initial encounter for open fracture type I or II <MARISSA Ceja - Last Filed: 04/28/21 14:31> Status: Acute <MARISSA Ceja - Last Filed: 04/28/21 14:31> Assessment and Plan: Status post ORIF 7 8 Nonweightbearing to the left upper extremity with elevate Follow-up with Dr. Lin in 2 weeks at [facility] medicine plastic surgery clinic 6G call [phone] to schedule For Tylenol only tramadol made patient dizzy at outside hospital <MARISSA Ceja - Last Filed: 04/28/21 14:31> (3) GERD (gastroesophageal reflux disease): Code(s): K21.9 - Gastro-esophageal reflux disease without esophagitis <Ranjan KimmieADAMA ElmoreC - Last Filed: 04/28/21 14:31> Status: Acute <Joseblanca KimmieMARISSA Elmore - Last Filed: 04/28/21 14:31> Assessment and Plan: Started Protonix <JoseMARISSA Joaquin - Last Filed: 04/28/21 14:31> (4) Alzheimer's dementia: Qualifiers: Alzheimer's disease onset: late-onset Dementia behavioral disturbance: with behavioral disturbance Qualified Code(s): G30.1 - Alzheimer's disease with late onset; F02.81 - Dementia in other diseases classified elsewhere with behavioral disturbance <MARISSA Ceja - Last Filed: 04/28/21 14:31> Code(s): G30.9 - Alzheimer's disease, unspecified; F02.80 - Dementia in other diseases classified elsewhere without behavioral disturbance <MARISSA Ceja - Last Filed: 04/28/21 14:31> Status: Acute <Ranjan KimmieMARISSA Elmore - Last Filed: 04/28/21 14:31> Assessment and Plan: Continue Lexapro , risperidone and nortriptyline <MARISSA Ceja - Last Filed: 04/28/21 14:31> (5) Sick sinus syndrome: Code(s): I49.5 - Sick sinus syndrome <MARISSA Ceja - Last Filed: 04/28/21 14:31> Status: Acute <MARISSA Ceja - Last Filed: 04/28/21 14:31> Assessment and Plan: Status post pacemaker placed Baseline EKG pending <MARISSA Ceja - Last Filed: 04/28/21 14:31> (6) Dementia: Qualifiers: Alzheimer's disease onset: unspecified onset Dementia behavioral disturbance: without behavioral disturbance Dementia type: Alzheimer's Qualified Code(s): G30.9 - Alzheimer's disease, unspecified; F02.80 - Dementia in other diseases classified elsewhere without behavioral disturbance <MARISSA Ceja - Last Filed: 04/28/21 14:31> Code(s): F03.90 - Unspecified dementia without behavioral disturbance <So
[2021-04-28 14:03] VITALS: BP 143/70; PULSE 81; RESP 14; TEMP 36.4; O2SAT 95
[2021-04-28 14:19] VITALS: BMI 31.6
--- NOTE | 2021-04-28 15:19 | PC.NURSE ---
Bedside report completed ouitside patient's room, as she is easily overwhelmed by too many people. Introduced self to patient, and updated board. Patient is only oriented to self. Patient is very confused and difficult to follow in a conversation. She has a cast on her L arm. Otherwise, is medically stable. Family provided sitter is in room with patient. Patient is sitting on the side of the bed talking to the sitter who is redirecting patient as needed. They are coloring together.
[2021-04-28] MEDS: ACETAMINOPHEN 325 MG TABLET 650 MG PO (15:36)
[2021-04-28 15:37] LABS: Add Urine Microscopic? YES; Appearance Urine Sl Cloudy (Clear); Bilirubin Urine Negative (Negative); Blood Urine 1+ (Negative); Color Urine Light Yellow (Yellow); Glucose Urine UA Negative (Negative); Ketones Urine Negative (Negative); Leukocyte Esterase Ur 3+ LEU/UL (Negative); Nitrate Urine Negative (Negative); Protein Urine Negative (Negative); Urobilinogen Urine 0.2 mg/dL (0.2-1.0); pH Urine 6.5 (5.0-8.0)
[2021-04-28 15:42] LABS: Bacteria Urine 3+ /hpf; RBC Urine None seen /hpf (0-2); Squamous Epithelial Cell Urine Few /hpf (Few); WBC Urine 31-50 /hpf (0-3)
[2021-04-28 16:00] VITALS: BP 139/91; PULSE 86; RESP 18; TEMP 37.2; O2SAT 94
--- NOTE | 2021-04-28 18:25 | PC.NURSE ---
notified of abnormal UA results. New orders received.
[2021-04-28] MEDS: risperiDONE 1 MG TABLET PO (19:48)
--- NOTE | 2021-04-28 19:50 | PC.NURSE ---
pt c/o constantly feeling she has to pee, up to commode stand and pivot with x2 assist and gait belt, pt requires constant cues, daughter and are staying until night time sitter shows up at 2030
--- NOTE | 2021-04-28 20:45 | PC.NURSE ---
josefa the night grounds caretaker is here, family is leaving for the night
[2021-04-28] MEDS: MELATONIN 5 MG TABLET 10 MG PO (21:03)
[2021-04-28] MEDS: NORTRIPTYLINE HCL 25 MG CAPSULE 50 MG PO (21:03)
[2021-04-28] MEDS: NITROFURANTOIN MONOHYD MACROCR 100 MG CAP PO (21:04)
[2021-04-28] MEDS: SENNA/DOCUSATE SODIUM TABLET 1 TAB PO (21:04)
[2021-04-28 23:23] VITALS: BP 150/76; PULSE 80; RESP 20; TEMP 36.6; O2SAT 96
--- NOTE | 2021-04-28 23:25 | PC.NURSE ---
Upon entering room for assistance,pts. family hired sitter at bedside and stated pt wants to use toilet. Unable to get pt out of bed, pt. yelling and scared of falling. Pt. assisted x2 to roll and placed on bedpan. Pt. was able to urinate on bedpan c much coersion and reassurance provided. Pt. changed of dry linens, repositioned and lights dimmed. Call pardo in reach c pts. assistant laboratory director at bedside throughout night.
--- NOTE | 2021-04-29 00:03 | WPDREHABHP ---
H&P: HPI History of Present Illness Date/Time: 04/29/21 00:03 Kimmie is a pleasant 81F with a PMH of alzheimer's dementia, arthritis, sick sinus syndrome s/p pacemaker, GERD and anxiety that presented for a swing bed. She had an open distal radius and ulna fracture of the left hand with ORIF done on 04/22. She is only oriented to herself which is reportedly her baseline. She has a caregiver at home during the day and lives at [facility] at night. The goal is to get her weight bearing so she can return to this previous living arrangement. Chief Complaint: weakness Review of Systems Review of Systems ROS unobtainable: Yes unobtainable due to mental status PMFSH Past Medical History Medical History Alzheimer's dementia History of delirium related to hospitalizations. Arthritis Severe arthritis of right knee and hip. Gastroesophageal reflux disease History of anxiety Surgical History Surgical History History of cardiac pacemaker History of cholecystectomy History of surgery on left wrist (~11/2020) ORIF left wrist fracture performed at [facility]. History of tonsillectomy Family History Family History Father Chronic lymphocytic leukemia Mother Liver failure Arthritis Social History Social History Social History: The patient is and lives with her in [place], [place]. They have 3 grown children. Caretakers are in the home 24 hours a day. She ambulates with a walker and gait belt with 1 assist. 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 Lifelong nonsmoker. No alcohol or illicit substance use. Her daughter Jane Land is her healthcare power of ip technology transactions attorney. Code status: Full code. Smoking status: Never smoker Second hand tobacco smoke exposure: No Alcohol intake: never Substance use: never Gender identity (if verbalized by the patient): Female Sexual Orientation (if Verbalized by the Patient): Straight or Heterosexual Spiritual care concerns: No Meds Home Medications and Allergies Home Medications Medication Instructions Recorded Confirmed Type acetaminophen 1,000 mg PO Q6-8H PRN 03/13/21 04/28/21 History ascorbic acid (vitamin C) 1 g PO DAILY 03/13/21 04/28/21 History calcium carbonate-vitamin D3 1 tablet PO DAILY 03/13/21 04/28/21 History [Calcium 500 + D] escitalopram oxalate 20 mg PO DAILY 03/13/21 04/28/21 History nortriptyline 50 mg PO HS 03/13/21 04/28/21 History oxycodone 5 mg PO PRN 03/13/21 03/13/21 History pantoprazole 40 mg PO DAILY 03/13/21 04/28/21 History risperidone 1 mg PO HS 03/13/21 04/28/21 History Saccharomyces boulardii [Florastor] 250 mg PO BID 7 Days #14 cap 03/16/21 Rx amoxicillin-pot clavulanate 1 tablet PO Q12H 5 Days #10 tablet 03/16/21 Rx [Augmentin] diclofenac sodium 2 g TOPICAL QID 04/28/21 04/28/21 History melatonin 10 mg BYMOUTH HS 04/28/21 04/28/21 History polyethylene glycol 1 packet BYMOUTH DAILY 04/28/21 04/28/21 History senna-docusate sodium 2 tablet BYMOUTH BID 04/28/21 04/28/21 History tramadol 1 tablet BYMOUTH Q6H PRN 04/28/21 04/28/21 History Allergies Allergy/AdvReac Type Severity Reaction Status Date / Time donepezil Allergy Rash Verified 03/13/21 11:03 Vital Signs Vital Signs - 24 hr 04/28/21 14:03 04/28/21 16:00 04/28/21 23:23 Temperature 97.6 F 98.9 F 97.8 F Pulse Rate 81 86 80 Respiratory Rate 14 18 20 Blood Pressure 143/70 H 139/91 H 150/76 H Pulse Oximetry 95 94 96 Exam Const General: comfortable and no acute distress HENMT Other: normocephalic, atrauamtic Eyes General: appearance normal, both eyes and all related structures Resp Effort & Inspection: normal respiratory effort Auscultation: clear to auscultation nellie
--- NOTE | 2021-04-29 00:35 | PC.NURSE ---
Pt. sitting upright in bed, confused and wanting to get out of bed to go into another room. Pts. family sitter at bedside and unable to redirect pt. Charge nurse called ERP Dr Goode for order to give med to help pt sleep and relax. Order obtained.
[2021-04-29] MEDS: ALPRAZolam (*CRX) 0.25 MG TABLET PO (01:31)
[2021-04-29] MEDS: ACETAMINOPHEN 500 MG TABLET 1000 MG PO ×2 (03:40→11:24)
[2021-04-29 05:18] LABS: Hematocrit 33.3 % (35.0-42.0); Hemoglobin 10.7 g/dL (11.7-13.8); Mean Corpuscular HGB Conc 32.1 g/dL (32.0-36.0); Mean Corpuscular Hemoglobin 28.5 pg (27.0-31.0); Mean Corpuscular Volume 88.8 fL (78.0-102.0); Mean Platelet Volume 9.2 fl (9.2-11.8); Platelet Count Result 430 K/mm3 (150-420); Red Blood Count 3.75 M/mm3 (4.20-5.40); Red Cell Distribution Width 12.7 % (11.6-14.4); White Blood Count 6.6 K/mm3 (4.8-10.8)
[2021-04-29 05:33] LABS: Alanine Aminotransferase 18 U/L (14-59); Albumin Level 3.2 g/dL (3.4-5.0); Alkaline Phosphatase 74 U/L (46-116); Anion Gap 10 mmol/L (8-16); Aspartate Amino Transferase 18 U/L (15-37); Bilirubin,Total 0.3 mg/dL (0.00-1.00); Blood Urea Nitrogen 8 mg/dL (7-18); Carbon Dioxide 28 mmol/L (21-32); Chloride 103 mmol/L (98-108); Estimated CRCL calculation 63 ml/min; Estimated Glomerular Filt Rate > 60; Glucose 103 mg/dL (70-99); Magnesium 1.9 mg/dL (1.8-2.4); Osmolality Calculated 290 mOsm/kg (285-295); Potassium 3.8 mmol/L (3.5-5.1); Sodium 141 mmol/L (136-145); Total Protein 6.8 g/dL (6.4-8.2)
[2021-04-29 08:00] VITALS: BP 146/74; PULSE 72; RESP 20; TEMP 36.6; O2SAT 92
[2021-04-29] MEDS: ASCORBIC ACID 500 MG TABLET 1000 MG PO (08:50)
[2021-04-29] MEDS: CALCIUM/VITAMIN D 250 MG TABLET 1 TABLET PO (08:51)
[2021-04-29] MEDS: ESCITALOPRAM OXALATE 10 MG TABLET 20 MG PO (08:51)
[2021-04-29] MEDS: NITROFURANTOIN MONOHYD MACROCR 100 MG CAP PO ×2 (08:51→21:21)
[2021-04-29] MEDS: polyethylene glycoL 3350 17 GM POWD.PACK PO (08:51)
--- NOTE | 2021-04-29 15:35 | PC.NURSE ---
Bedside report completed outside room. Patient confused, becomes more confused with additional people in room. Patient greeted, board updated. Patient placed on bedside commode using Isha Plus. Less anxious using this than any other method attempted. (Up with 2 using gaitbelt, pivot and turn; Isha Steady; Bed orozco)
[2021-04-29 16:00] VITALS: BP 155/81; PULSE 75; RESP 20; TEMP 36.4; O2SAT 95
[2021-04-29] MEDS: risperiDONE 1 MG TABLET PO (17:17)
--- NOTE | 2021-04-29 21:00 | ECG_ITS ---
Swapped the 04/29 2100 order with the 04/29 900 order. -BJO Measurements Intervals Jenner Rate: 89 P: 66 OK: 192 QRS: 11 QRSD: 106 T: 52 QT: 364 QTc: 444 Interpretive Statements SINUS RHYTHM ATRIAL AND VENTRICULAR PREMATURE COMPLEXES BORDERLINE R WAVE PROGRESSION, ANTERIOR LEADS BORDERLINE T WAVE ABNORMALITY- ANTEROLAT/INF LEADS BASELINE ARTIFACT- II, III, AVL, AVF BORDERLINE ECG Electronically Signed On 04-29-2021 8:54:40 CDT by Aly LYNN
[2021-04-29] MEDS: SENNA/DOCUSATE SODIUM TABLET 1 TAB PO (21:18)
[2021-04-29] MEDS: MELATONIN 5 MG TABLET 10 MG PO (21:18)
[2021-04-29] MEDS: NORTRIPTYLINE HCL 25 MG CAPSULE 50 MG PO (21:20)
--- NOTE | 2021-04-29 22:35 | PC.NURSE ---
Patient was moved from the bed to the commode, using the Vickie Plus. She did not have any output. On the trip back to the bed, patient put her foot down, behind the plate. As the Vickie Plus moved forward, her foot became jammed under the footplate. As the patient usually screams as she is being stood up and moved, it was not immediately apparent there was a problem. Once the foot was noticed, the Vickie Plus was moved back, and her foot was placed back on the footplate. She was helped into the bed with no further incident. Foot was assessed. There was no bruising, swelling, or redness. Patient was able to move the foot. and could flex and extend both feet without difficulty. Patient did not complain of pain. Foot will be monitored.
[2021-04-30] VITALS: BP 141/81; PULSE 78; RESP 18; TEMP 36.1; O2SAT 94
[2021-04-30] MEDS: ACETAMINOPHEN 500 MG TABLET 1000 MG PO ×2 (06:48→14:37)
[2021-04-30 08:00] VITALS: BP 136/68; PULSE 76; RESP 18; TEMP 36.7; O2SAT 95
[2021-04-30] MEDS: CALCIUM/VITAMIN D 250 MG TABLET 1 TABLET PO (08:27)
[2021-04-30] MEDS: NITROFURANTOIN MONOHYD MACROCR 100 MG CAP PO (08:27)
[2021-04-30] MEDS: ESCITALOPRAM OXALATE 10 MG TABLET 20 MG PO (08:27)
[2021-04-30] MEDS: ASCORBIC ACID 500 MG TABLET 1000 MG PO (08:27)
--- NOTE | 2021-04-30 10:40 | PC.NURSE ---
OT at bedside
--- NOTE | 2021-04-30 11:08 | PM.EVENT ---
Event Note Event Note Event Note: Patient's UA positive for ESBL sensitive to imipenem we will start imipenem 500 mg every every 6 hours for 7 days
--- NOTE | 2021-04-30 14:32 | PC.NURSE ---
Ania OT in room
[2021-04-30 16:00] VITALS: BP 138/74; PULSE 82; RESP 16; TEMP 36.9; O2SAT 96
[2021-04-30] MEDS: risperiDONE 1 MG TABLET PO (17:17)
[2021-04-30] MEDS: SENNA/DOCUSATE SODIUM TABLET 1 TAB PO (20:55)
[2021-04-30] MEDS: NORTRIPTYLINE HCL 25 MG CAPSULE 50 MG PO (20:55)
[2021-04-30] MEDS: MELATONIN 5 MG TABLET 10 MG PO (20:56)
[2021-05-01] VITALS: BP 127/62; PULSE 80; RESP 18; TEMP 36.4; O2SAT 95
[2021-05-01] MEDS: ACETAMINOPHEN 500 MG TABLET 1000 MG PO ×3 (00:05→20:10)
[2021-05-01 08:15] VITALS: BP 138/72; PULSE 85; RESP 18; TEMP 36.8; O2SAT 95
[2021-05-01] MEDS: ASCORBIC ACID 500 MG TABLET 1000 MG PO (09:00)
[2021-05-01] MEDS: CALCIUM/VITAMIN D 250 MG TABLET 1 TABLET PO (09:00)
[2021-05-01] MEDS: ESCITALOPRAM OXALATE 10 MG TABLET 20 MG PO (09:00)
[2021-05-01 15:35] VITALS: BP 148/90; PULSE 84; RESP 18; TEMP 36.7; O2SAT 93
[2021-05-01] MEDS: risperiDONE 1 MG TABLET PO (17:32)
[2021-05-01] MEDS: MELATONIN 5 MG TABLET 10 MG PO (20:10)
[2021-05-01] MEDS: SENNA/DOCUSATE SODIUM TABLET 1 TAB PO (20:11)
[2021-05-01] MEDS: NORTRIPTYLINE HCL 25 MG CAPSULE 50 MG PO (20:11)
--- NOTE | 2021-05-01 21:32 | PC.NURSE ---
Share[employer] Admin and another nurse with assistance of personal sitter, were provided care to patient. Patient was yelling and screaming im going to fall and started crying during care. Sharepoint Admin and other nurse were rolling patient in bed to change patient d/t incontinence. Patient did calm down after care provided.
[2021-05-02] VITALS: BP 127/60; PULSE 78; RESP 20; TEMP 36.2; O2SAT 96
[2021-05-02] MEDS: ACETAMINOPHEN 500 MG TABLET 1000 MG PO ×3 (03:51→21:08)
[2021-05-02 08:00] VITALS: BP 151/80; PULSE 69; RESP 18; TEMP 36.4; O2SAT 93
[2021-05-02] MEDS: CALCIUM/VITAMIN D 250 MG TABLET 1 TABLET PO (08:38)
[2021-05-02] MEDS: polyethylene glycoL 3350 17 GM POWD.PACK PO (08:38)
[2021-05-02] MEDS: ESCITALOPRAM OXALATE 10 MG TABLET 20 MG PO (08:38)
[2021-05-02] MEDS: ASCORBIC ACID 500 MG TABLET 1000 MG PO (08:38)
[2021-05-02 16:00] VITALS: BP 147/74; PULSE 90; RESP 18; TEMP 36.4; O2SAT 96
[2021-05-02] MEDS: risperiDONE 1 MG TABLET PO (16:46)
[2021-05-02] MEDS: NORTRIPTYLINE HCL 25 MG CAPSULE 50 MG PO (21:06)
[2021-05-02] MEDS: SENNA/DOCUSATE SODIUM TABLET 1 TAB PO (21:06)
[2021-05-02] MEDS: MELATONIN 5 MG TABLET 10 MG PO (21:06)
[2021-05-03] VITALS: BP 154/65; PULSE 87; RESP 18; TEMP 36.4; O2SAT 93
--- NOTE | 2021-05-03 00:35 | PC.NURSE ---
Different daughter here to relieve daughter already here.
--- NOTE | 2021-05-03 02:30 | PC.NURSE ---
Pt up to the commode with the jabier steady and assist of two. Pt voided 300 ml of clear, yellow urine and returned to bed with the jabier steady and assist of two.
[2021-05-03] MEDS: ACETAMINOPHEN 500 MG TABLET 1000 MG PO ×2 (03:19→23:22)
[2021-05-03 07:51] VITALS: BP 131/68; PULSE 77; RESP 16; TEMP 36.3; O2SAT 94
[2021-05-03] MEDS: polyethylene glycoL 3350 17 GM POWD.PACK PO (08:28)
[2021-05-03] MEDS: ESCITALOPRAM OXALATE 10 MG TABLET 20 MG PO (08:29)
[2021-05-03] MEDS: ASCORBIC ACID 500 MG TABLET 1000 MG PO (08:30)
[2021-05-03] MEDS: CALCIUM/VITAMIN D 250 MG TABLET 1 TABLET PO (08:42)
[2021-05-03 16:00] VITALS: BP 151/79; PULSE 87; RESP 20; TEMP 36.4; O2SAT 97
[2021-05-03] MEDS: risperiDONE 1 MG TABLET PO (17:38)
--- NOTE | 2021-05-03 20:20 | PC.NURSE ---
Patient's daughter called to say that patient's caregiver that is supposed to be here @ 2030 just called off with the flu and they had no one to replace her. Daughter asked if we had enough staff to have someone sit with patient. When daughter was told no staff would be able to sit with resident and provide one on one care, daughter then asked what safety implements we had to use. Told daughter we have bed rails and bed alarm. Daughter said that wasn't enough and asked if we had a Mike belt to use to keep her in the bed. Told daughter we could not restrain patients. Daughter said she is working on finding someone to come sit with patient.
[2021-05-03] MEDS: SENNA/DOCUSATE SODIUM TABLET 1 TAB PO (20:29)
[2021-05-03] MEDS: NORTRIPTYLINE HCL 25 MG CAPSULE 50 MG PO (20:29)
[2021-05-03] MEDS: MELATONIN 5 MG TABLET 10 MG PO (20:29)
--- NOTE | 2021-05-03 21:00 | PC.NURSE ---
Patient's daughter here to relieve current caregiver and said that her sister is supposed to relieve her @ midnight.
[2021-05-04] VITALS: BP 129/67; PULSE 76; RESP 20; TEMP 36; O2SAT 95
[2021-05-04 06:04] LABS: Alanine Aminotransferase 19 U/L (14-59); Albumin Level 3.3 g/dL (3.4-5.0); Alkaline Phosphatase 86 U/L (46-116); Anion Gap 9 mmol/L (8-16); Aspartate Amino Transferase 16 U/L (15-37); Bilirubin,Total 0.3 mg/dL (0.00-1.00); Blood Urea Nitrogen 14 mg/dL (7-18); Calcium 8.9 mg/dL (8.5-10.1); Carbon Dioxide 28 mmol/L (21-32); Chloride 104 mmol/L (98-108); Estimated CRCL calculation 61 ml/min; Estimated Glomerular Filt Rate > 60; Glucose 103 mg/dL (70-99); Osmolality Calculated 292 mOsm/kg (285-295); Potassium 4.5 mmol/L (3.5-5.1); Sodium 141 mmol/L (136-145); Total Protein 7.5 g/dL (6.4-8.2)
[2021-05-04] MEDS: ACETAMINOPHEN 500 MG TABLET 1000 MG PO ×3 (06:24→23:16)
[2021-05-04] MEDS: polyethylene glycoL 3350 17 GM POWD.PACK PO (07:49)
[2021-05-04] MEDS: ESCITALOPRAM OXALATE 10 MG TABLET 20 MG PO (07:50)
[2021-05-04] MEDS: ASCORBIC ACID 500 MG TABLET 1000 MG PO (07:50)
[2021-05-04] MEDS: CALCIUM/VITAMIN D 250 MG TABLET 1 TABLET PO (07:50)
[2021-05-04 08:00] VITALS: BP 132/84; PULSE 90; RESP 18; TEMP 36.6; O2SAT 96
--- NOTE | 2021-05-04 14:33 | PC.NURSE ---
patient several times this am with assist of 2 and max assist. the more the day goes the harder it is to get her up and to sit. hollers and resistive to care.
[2021-05-04 16:00] VITALS: BP 165/74; PULSE 81; RESP 16; TEMP 36.4; O2SAT 95
[2021-05-04] MEDS: risperiDONE 1 MG TABLET PO (17:08)
[2021-05-04] MEDS: ONDANSETRON INJ 4 MG/2 ML VIAL IV PUSH (22:27)
[2021-05-04] MEDS: MELATONIN 5 MG TABLET 10 MG PO (23:18)
[2021-05-04] MEDS: NORTRIPTYLINE HCL 25 MG CAPSULE 50 MG PO (23:18)
[2021-05-04] MEDS: SENNA/DOCUSATE SODIUM TABLET 1 TAB PO (23:18)
[2021-05-05] VITALS: BP 135/62; PULSE 80; RESP 18; TEMP 36.4; O2SAT 95
[2021-05-05] MEDS: ACETAMINOPHEN 500 MG TABLET 1000 MG PO (05:35)
[2021-05-05 05:42] LABS: Basophils Absolute Auto 0.04 K/mm3 (0.00-0.10); Basophils Percent Auto 0.5 % (0.0-1.0); Eosinophils Absolute Auto 0.23 K/mm3 (0.02-0.50); Hematocrit 35.3 % (35.0-42.0); Immature Granulocyte Absolute 0.04 K/mm3 (0.00-0.00); Immature Granulocyte Percent A 0.5 % (0.0-0.0); Lymphocytes Absolute Auto 1.37 K/mm3 (1.10-4.50); Mean Corpuscular HGB Conc 31.2 g/dL (32.0-36.0); Mean Corpuscular Hemoglobin 28.2 pg (27.0-31.0); Mean Corpuscular Volume 90.5 fL (78.0-102.0); Mean Platelet Volume 9.6 fl (9.2-11.8); Monocytes Absolute Auto 0.83 K/mm3 (0.10-0.90); Monocytes Percent Auto 10.9 % (2.0-11.0); Neutrophils Absolute Auto 5.1 K/mm3 (1.7-7.2); Neutrophils Percent Auto 67.1 % (50.0-70.0); Platelet Count Result 478 K/mm3 (150-420); Red Cell Distribution Width 12.8 % (11.6-14.4); White Blood Count 7.6 K/mm3 (4.8-10.8)
[2021-05-05 05:58] LABS: Alanine Aminotransferase 19 U/L (14-59); Albumin Level 3.4 g/dL (3.4-5.0); Alkaline Phosphatase 93 U/L (46-116); Anion Gap 9 mmol/L (8-16); Aspartate Amino Transferase 19 U/L (15-37); Bilirubin,Total 0.3 mg/dL (0.00-1.00); Blood Urea Nitrogen 16 mg/dL (7-18); Calcium 9.1 mg/dL (8.5-10.1); Carbon Dioxide 28 mmol/L (21-32); Chloride 103 mmol/L (98-108); Estimated CRCL calculation 62 ml/min; Estimated Glomerular Filt Rate > 60; Glucose 104 mg/dL (70-99); Osmolality Calculated 291 mOsm/kg (285-295); Potassium 4.9 mmol/L (3.5-5.1); Sodium 140 mmol/L (136-145)
[2021-05-05 08:00] VITALS: BP 120/80; PULSE 79; RESP 16; TEMP 37; O2SAT 93
--- NOTE | 2021-05-05 08:52 | PM.IMPN ---
Progress Note: A&P Assessment and Plan (1) Weakness: Code(s): R53.1 - Weakness Status: Acute Assessment and Plan: ? Exhibit tolerance during physical activity as evidenced by a normal fluctuation of vital signs during physical activity. ? Patient will be ability to perform required activities of daily living. ? Provide appropriate nutrition for healing and strength. ? Use appropriate to prevent falls. ? Continue physical therapy/occupational therapy. 05/05/2021 Pt working with PT, she was walking in the vega with limited difficulty (2) UTI (urinary tract infection): Code(s): N39.0 - Urinary tract infection, site not specified Status: Acute Assessment and Plan: 05/05/2021 Pt was found to have a UTI with ESBL and was started on Imipenem for a 7 day period with end date being 05/07/2021. (3) Fracture of radial shaft, with ulna, left, open: Qualifiers: Encounter type: subsequent encounter Fracture healing: with routine healing Open fracture type: open type I or II Qualified Code(s): S52.302E - Unspecified fracture of shaft of left radius, subsequent encounter for open fracture type I or II with routine healing; S52.202E - Unspecified fracture of shaft of left ulna, subsequent encounter for open fracture type I or II with routine healing Code(s): S52.302B - Unspecified fracture of shaft of left radius, initial encounter for open fracture type I or II; S52.202B - Unspecified fracture of shaft of left ulna, initial encounter for open fracture type I or II Status: Acute Assessment and Plan: Status post ORIF 7 8 Nonweightbearing to the left upper extremity with elevate Follow-up with Dr. Lin in 2 weeks at [facility] medicine plastic surgery clinic 6G call [phone] to schedule For Tylenol only tramadol made patient dizzy at outside hospital 05/05/2021 difficult to assess as Pt did not follow all directions, good movement with a little pain (arthritis ?), normal capillary refill, Pt did not indicate if she could feel her fingers however this was the same when asked about her right hand that does not have a cast (4) GERD (gastroesophageal reflux disease): Code(s): K21.9 - Gastro-esophageal reflux disease without esophagitis Status: Acute Assessment and Plan: Started Protonix (5) Alzheimer's dementia: Qualifiers: Alzheimer's disease onset: late-onset Dementia behavioral disturbance: with behavioral disturbance Qualified Code(s): G30.1 - Alzheimer's disease with late onset; F02.81 - Dementia in other diseases classified elsewhere with behavioral disturbance Code(s): G30.9 - Alzheimer's disease, unspecified; F02.80 - Dementia in other diseases classified elsewhere without behavioral disturbance Status: Acute Assessment and Plan: Continue Lexapro , risperidone and nortriptyline 05/05/2021 Pleasantly confused (6) Sick sinus syndrome: Code(s): I49.5 - Sick sinus syndrome Status: Acute Assessment and Plan: Status post pacemaker placed Baseline EKG pending (7) Anxiety: Code(s): F41.9 - Anxiety disorder, unspecified Status: Acute Assessment and Plan: Continue Lexapro , risperidone and nortriptyline (8) Syncopal episodes: Qualifiers: Syncope type: unspecified Qualified Code(s): R55 - Syncope and collapse Code(s): R55 - Syncope and collapse Status: Acute Assessment and Plan: At outside hospital EKG at outside hospital in sinus rhythm Carotid completed 04/20 with less than 50% stenosis bilateral at outside hospital YASMEEN completed 04/19 with grossly normal findings and EF of 70% at outside hospital 05/05/2021 no reported syncopal episodes (9) Arthritis: Code(s): M19.90 - Unspecified osteoarthritis, unspecified site Status: Acute Assessment and Plan: 05/05/2021 Tylenol PRN Subjective Date/time seen: 05/05/21 08:52 Pt is
[2021-05-05] MEDS: ASCORBIC ACID 500 MG TABLET 1000 MG PO (09:03)
[2021-05-05] MEDS: ESCITALOPRAM OXALATE 10 MG TABLET 20 MG PO (09:03)
[2021-05-05] MEDS: CALCIUM/VITAMIN D 250 MG TABLET 1 TABLET PO (09:04)
[2021-05-05] MEDS: polyethylene glycoL 3350 17 GM POWD.PACK PO (09:04)
[2021-05-05 16:00] VITALS: BP 136/60; PULSE 80; RESP 18; TEMP 36.6; O2SAT 94
[2021-05-05] MEDS: risperiDONE 1 MG TABLET PO (18:46)
[2021-05-05 20:00] VITALS: PULSE 75; RESP 20; O2SAT 96
[2021-05-05] MEDS: SENNA/DOCUSATE SODIUM TABLET 1 TAB PO (20:46)
[2021-05-05] MEDS: MELATONIN 5 MG TABLET 10 MG PO (20:47)
[2021-05-05] MEDS: ACETAMINOPHEN 325 MG TABLET 650 MG PO (20:47)
[2021-05-05] MEDS: NORTRIPTYLINE HCL 25 MG CAPSULE 50 MG PO (20:47)
[2021-05-06] VITALS: BP 126/74; PULSE 75; RESP 20; TEMP 36.5; O2SAT 96
[2021-05-06] MEDS: ACETAMINOPHEN 325 MG TABLET 650 MG PO (05:45)
[2021-05-06 08:00] VITALS: BP 124/72; PULSE 75; RESP 16; TEMP 36.6; O2SAT 98
[2021-05-06] MEDS: polyethylene glycoL 3350 17 GM POWD.PACK PO (09:00)
[2021-05-06] MEDS: ESCITALOPRAM OXALATE 10 MG TABLET 20 MG PO (09:01)
[2021-05-06] MEDS: IBUPROFEN 400 MG TABLET PO ×2 (09:01→17:00)
[2021-05-06] MEDS: CALCIUM/VITAMIN D 250 MG TABLET 1 TABLET PO (09:02)
[2021-05-06] MEDS: ASCORBIC ACID 500 MG TABLET 1000 MG PO (09:02)
[2021-05-06] MEDS: ACETAMINOPHEN 500 MG TABLET 1000 MG PO ×2 (13:29→20:23)
[2021-05-06 15:40] VITALS: BP 155/84; PULSE 83; RESP 16; TEMP 36.3; O2SAT 95
--- NOTE | 2021-05-06 15:56 | PC.NURSE ---
daughter raquel has called to say their night care-giving officer has called off again and no one can replace her at this time, daughter made aware we do not have the extra staff at this time to provide a sitter for them, states if you don't hear back from me then I didn't find anyone and someone there will just have to watch her
[2021-05-06] MEDS: risperiDONE 1 MG TABLET PO (17:05)
--- NOTE | 2021-05-06 18:56 | PC.NURSE ---
pt c/o acid reflux pain and belching, given glass of milk, sitting up in chair
[2021-05-06] MEDS: MELATONIN 5 MG TABLET 10 MG PO (20:22)
[2021-05-06] MEDS: SENNA/DOCUSATE SODIUM TABLET 1 TAB PO (20:34)
[2021-05-06] MEDS: NORTRIPTYLINE HCL 25 MG CAPSULE 50 MG PO (20:34)
[2021-05-07] VITALS: BP 136/60; PULSE 75; RESP 20; TEMP 36.4; O2SAT 95
--- NOTE | 2021-05-07 00:40 | PC.NURSE ---
PT stated needing to void, this nurse with assist of another nurse attempted to stand pt up with gait belt and walker to transfer to [facility]. Pt refused to stand, refused to assist with transfer. Pt incontinent of urine x1, changed and miya care provided. Pt yelling out and uncooperative during miya care and linen change.
[2021-05-07] MEDS: ACETAMINOPHEN 500 MG TABLET 1000 MG PO (01:58)
[2021-05-07] MEDS: ACETAMINOPHEN 325 MG TABLET 650 MG PO (05:05)
--- NOTE | 2021-05-07 05:40 | PC.NURSE ---
Pt had bed bath this am, Pt transferred w/ 2 assist gait belt and walker to [facility] and into recliner chair. R Hand IV discontinued, removed with catheter intact, pt tolerated well with minimal bleeding. Pt resting in recliner at this time, denies c/o pain or discomfort.
--- NOTE | 2021-05-07 06:45 | PM.DS ---
DS: Admitting Diagnosis Admitting Diagnosis Left Arm Fx, Rehabilitation s/p syncope <GLORIA KimC - Last Filed: 05/07/21 07:12> DS: Discharge Diagnosis Discharge Diagnosis (1) Weakness: Code(s): R53.1 - Weakness <Idris Cruz APN-C - Last Filed: 05/07/21 07:12> Status: Acute <BETTINA Kim - Last Filed: 05/07/21 07:12> Assessment and Plan: ? Exhibit tolerance during physical activity as evidenced by a normal fluctuation of vital signs during physical activity. ? Patient will be ability to perform required activities of daily living. ? Provide appropriate nutrition for healing and strength. ? Use appropriate to prevent falls. ? Continue physical therapy/occupational therapy. 05/05/2021 Pt working with PT, she was walking in the vega with limited difficulty 05/07/2021 Pt will have PT/OT at [facility] <BETTINA Kim - Last Filed: 05/07/21 07:12> (2) UTI (urinary tract infection): Code(s): N39.0 - Urinary tract infection, site not specified <Idris Cruz APN-C - Last Filed: 05/07/21 07:12> Status: Acute <GLORIA KimC - Last Filed: 05/07/21 07:12> Assessment and Plan: 05/05/2021 Pt was found to have a UTI with ESBL and was started on Imipenem for a 7 day period with end date being 05/07/2021. 05/07/2021 Last dose this AM <GLORIA KimC - Last Filed: 05/07/21 07:12> (3) Fracture of radial shaft, with ulna, left, open: Qualifiers: Encounter type: subsequent encounter Fracture healing: with routine healing Open fracture type: open type I or II Qualified Code(s): S52.302E - Unspecified fracture of shaft of left radius, subsequent encounter for open fracture type I or II with routine healing; S52.202E - Unspecified fracture of shaft of left ulna, subsequent encounter for open fracture type I or II with routine healing <GLORIA KimC - Last Filed: 05/07/21 07:12> Code(s): S52.302B - Unspecified fracture of shaft of left radius, initial encounter for open fracture type I or II; S52.202B - Unspecified fracture of shaft of left ulna, initial encounter for open fracture type I or II <BETTINA Kim - Last Filed: 05/07/21 07:12> Status: Acute <BETTINA Kim - Last Filed: 05/07/21 07:12> Assessment and Plan: Status post ORIF 7 8 Nonweightbearing to the left upper extremity with elevate Follow-up with Dr. Lin in 2 weeks at [facility] plastic surgery clinic 6G call [phone] to schedule For Tylenol only tramadol made patient dizzy at outside hospital 05/05/2021 difficult to assess as Pt did not follow all directions, good movement with a little pain (arthritis ?), normal capillary refill, Pt did not indicate if she could feel her fingers however this was the same when asked about her right hand that does not have a cast 05/07/2021 No c/o pain, issues with Left hand this AM <BETTINA Kim - Last Filed: 05/07/21 07:12> (4) GERD (gastroesophageal reflux disease): Code(s): K21.9 - Gastro-esophageal reflux disease without esophagitis <BETTINA Kim - Last Filed: 05/07/21 07:12> Status: Acute <BETTINA Kim - Last Filed: 05/07/21 07:12> Assessment and Plan: Started Protonix <BETTINA Kim - Last Filed: 05/07/21 07:12> (5) Alzheimer's dementia: Qualifiers: Alzheimer's disease onset: late-onset Dementia behavioral disturbance: with behavioral disturbance Qualified Code(s): G30.1 - Alzheimer's disease with late onset; F02.81 - Dementia in other diseases classified elsewhere with behavioral disturbance <BETTINA Kim - Last Filed: 05/07/21 07:12> Code(s): G30.9 - Alzheimer's disease, unspecified; F02.80 - Dementia in other diseases classified elsewhere without behavioral disturbance <Idris Cruz APN-Onofre - Last Filed: 04/16
--- NOTE | 2021-05-07 07:23 | PCPTNOTE ---
Attended POC meeting on 05/05/21 Bed mobility: CGA x 1 supine to sit Mod a 1 sit to to supine Transfers: sit to stand min x 1-Occasionally mod x 1 100% verbal cues for safety awareness and direction simple one step commands Ambulation: cga/min x 1 with platform [id number] 100% vc's ADL's dressing mod x 1 for pants toileting hygiene and clothing management max x 1 grooming min x 1 Discharge Planning: MondayMay 10
--- NOTE | 2021-05-07 08:22 | PC.NURSE ---
Pt discharged to family care. All dischage instruction reviewed with POA who verbalized understanding. CHRIS Adhikari here to take pt to MD appointment then home. All personal items returned to pt. RN took pt to family car via wheel chair and assisted pt into car.
--- NOTE | 2021-05-10 10:47 | PC.NURSE ---
longterm states they understood her discharge instructions.
== END 2021-05-07 07:50 | DRG 560 ==
PROVIDERS: Nurse Practitioner; Nurse Practitioner Family; Admitting Provider Family Medicine; PCP Internal Medicine Geriatric Medicine; Visit Provider Family Medicine
DX: S52.502E Unspecified fracture of the lower end of left radius, subsequent encounter for open fracture type I or II with routine healing (principal); N39.0 Urinary tract infection, site not specified; Z16.12 Extended spectrum beta lactamase (ESBL) resistance; B96.1 Klebsiella pneumoniae [K. pneumoniae] as the cause of diseases classified elsewhere; S52.602E Unspecified fracture of lower end of left ulna, subsequent encounter for open fracture type I or II with routine healing; I49.5 Sick sinus syndrome; M19.90 Unspecified osteoarthritis, unspecified site; K21.9 Gastro-esophageal reflux disease without esophagitis; G30.9 Alzheimer's disease, unspecified; F41.9 Anxiety disorder, unspecified; F02.80 Dementia in other diseases classified elsewhere, unspecified severity, without behavioral disturbance, psychotic disturbance, mood disturbance, and anxiety; W19.XXXD Unspecified fall, subsequent encounter; Z95.0 Presence of cardiac pacemaker
CPT/HCPCS: 36415; 80053; 81001; 83735; 85025; 85027; 87077; 87086; 87088; 87186; 93005; 97110; 97162; 97166; 97530; 97535; A4565; A9270; J0743; J2405

== ENCOUNTER 2021-06-14 19:29 | Inpatient (IN) | payer MEDICARE, SELFPAY ==
--- NOTE | ~2021-06-14 | CT_ITS ---
EXAMINATION:CT diagnostic chest wo con DATE: 06/14/2021 21:02 INDICATION: Shortness of breath and cough. TECHNIQUE: Computed tomography (CT) of the chest was performed without intravenous contrast. Automate d exposure control and iterative reconstruction technique were employed. The dose-length product (DLP ) was 367.74 mGy-cm. COMPARISON: Chest CT 03/13/2021 FINDINGS: Motion artifact is noted. There is mild atelectasis bilaterally. No pleural effusion. There is a 12 mm nodule in left thyroid lobe, likely not clinically significant. The heart size is normal. No pericardial effusion. There is a left chest wall pacer with leads in the right atrium and right v entricle. There is a small sliding hiatal hernia. Partially visualized is a cyst in right kidney trista uring at least 7.5 cm. There is severe cervical spondylosis and moderate thoracic spondylosis. IMPRESSION: 1. Small sliding hiatal hernia. Reviewed, dictated and finalized at location A.
--- NOTE | ~2021-06-14 | CT_ITS ---
EXAMINATION: CT brain wo con DATE: 06/14/2021 21:02 INDICATION: Confusion. TECHNIQUE: Computed tomography (CT) of the head was performed without intravenous contrast. The mA wa s adjusted according to patient size. Iterative reconstruction technique was employed. The dose-lengt h product was 605.33 mGy-cm. COMPARISON: None FINDINGS: There is no intracranial hemorrhage, acute infarction, or abnormal intracranial mass lesion . There are scattered areas of low attenuation in the cerebral white matter. The ventricles are yohannes l in size. The orbits are normal. There is mild mucosal thickening in the paranasal sinuses. There is a trace left mastoid effusion. IMPRESSION: 1. Mild nonspecific cerebral white matter disease, which likely represents chronic small vessel ische salo disease. Reviewed, dictated and finalized at location A. IMPRESSION: 1. Mild nonspecific cerebral white matter disease, which likely represents chronometer tester yuliana small vessel ischemic disease.
[2021-06-14 19:30] VITALS: BP 148/101; PULSE 95; RESP 22; TEMP 36.4; O2SAT 94
[2021-06-14 19:31] VITALS: O2SAT 94; BMI 32.1
[2021-06-14 20:04] LABS: Hematocrit 37.3 % (37.0-47.0); Mean Corpuscular HGB Conc 32.2 g/dl (32-36); Mean Corpuscular Volume 90.1 fl (80-100); Mean Platelet Volume 9.8 fl (7.4-10.4); Platelet Count Result 308 k/mm3 (150-375); Red Blood Count 4.14 M/mm3 (4.2-5.4); Red Cell Distribution Width 13.2 % (11.5-14.5); White Blood Count 18.2 K/mm3 (4.5-10.0)
[2021-06-14 20:25] LABS: Alanine Aminotransferase 17 U/L (4-35); Albumin Level 4.5 g/dL (3.5-5.1); Alkaline Phosphatase 93 U/L (38-126); Anion Gap 11 mmol/L (8-16); Aspartate Amino Transferase 21 U/L (14-36); Bilirubin,Total 0.5 mg/dL (0.2-1.3); Blood Urea Nitrogen 12 mg/dL (7-17); Calcium 9.1 mg/dL (8.4-10.2); Carbon Dioxide 24 mmol/L (22-30); Chloride 98 mmol/L (98-107); Estimated Glomerular Filt Rate > 60; Glucose 150 mg/dL (65-110); Lipase 22 U/L (23-300); Potassium 3.1 mmol/L (3.4-5.0); Sodium 133 mmol/L (137-145)
[2021-06-14 20:32] LABS: Band Neutrophils Percent 5 % (0-6); Lymphocytes Absolute Manual 0.72 K/mm3 (1.1-4.5); Monocytes Absolute Manual 0.54 K/mm3 (0.1-0.90); Monocytes Percent Manual 3 % (3-9); Neutrophils Absolute Manual 16.92 K/mm3 (1.7-7.2); Neutrophils Percent Manual 88 % (46-73); Total Cells Counted 100
[2021-06-14 20:33] LABS: Platelet Estimate Adequate (Adequate)
--- NOTE | 2021-06-14 20:37 | ED.AMS ---
HPI - Altered Mental Status General Chief Complaint: Altered Mental Status Stated Complaint: ams and emesis x 2 Time Seen by Provider: 06/14/21 20:11 Source: family Mode of arrival: EMS Limitations: altered mental status and dementia History of Present Illness HPI narrative: Patient is a 81-year-old female with a history of severe dementia brought in due to altered mental status described as decreased responsiveness. Daughter states that she is less responsive today and when she usually gets like this she has a urinary tract infection. Patient is nonambulatory, wheelchair-bound and [facility] Unable to get any history from the patient. Related Data Home Medications Medication Instructions Recorded Confirmed acetaminophen 1,000 mg PO Q6-8H PRN 03/13/21 04/28/21 ascorbic acid (vitamin C) 1 g PO DAILY 03/13/21 04/28/21 calcium carbonate-vitamin D3 1 tablet PO DAILY 03/13/21 04/28/21 [Calcium 500 + D] escitalopram oxalate 20 mg PO DAILY 03/13/21 04/28/21 nortriptyline 50 mg PO HS 03/13/21 04/28/21 pantoprazole 40 mg PO DAILY 03/13/21 04/28/21 risperidone 1 mg PO HS 03/13/21 04/28/21 diclofenac sodium 2 g TOPICAL QID 04/28/21 04/28/21 melatonin 10 mg BYMOUTH HS 04/28/21 04/28/21 polyethylene glycol 1 packet BYMOUTH DAILY 04/28/21 04/28/21 senna-docusate sodium 2 tablet BYMOUTH BID 04/28/21 04/28/21 tramadol 1 tablet BYMOUTH Q6H PRN 04/28/21 04/28/21 Allergies Allergy/AdvReac Type Severity Reaction Status Date / Time donepezil Allergy Rash Verified 03/13/21 11:03 Review of Systems Review of Systems: All systems reviewed & are unremarkable except as noted in HPI and below ROS unobtainable: Yes unobtainable due to mental status and other (Dementia) [facility] Past Medical History Medical History Alzheimer's dementia History of delirium related to hospitalizations. Arthritis Severe arthritis of right knee and hip. Gastroesophageal reflux disease History of anxiety Surgical History Surgical History History of cardiac pacemaker History of cholecystectomy History of surgery on left wrist (~11/2020) ORIF left wrist fracture performed at [place]. History of tonsillectomy Family History Family History Father Chronic lymphocytic leukemia Mother Liver failure Arthritis Social History Social History Social History: The patient is and lives with her in [place], [place]. They have 3 grown children. Caretakers are in the home 24 hours a day. She ambulates with a walker and gait belt with 1 assist. 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 Lifelong nonsmoker. No alcohol or illicit substance use. Her daughter Jane Land is her healthcare power of workers compensation attorney. Code status: Full code. Smoking status: Never smoker Second hand tobacco smoke exposure: No Alcohol intake: never Substance use: never Gender identity (if verbalized by the patient): Female Sexual Orientation (if Verbalized by the Patient): Straight or Heterosexual Spiritual care concerns: No Exam Const: General: comfortable and well developed HENMT: Head: normal to inspection, normocephalic and atraumatic Ears: TM normal on the right and TM normal on the left General nose exam: Normal external nose present, Normal nares present and No nasal discharge present Face and sinus: normal facial exam Mouth: Yes lip normal and Yes tongue normal Throat: posterior oropharynx normal, tonsils normal and uvula midline Eyes: General: appearance normal, both eyes and all related structures Pupils: Equal, round and reactive pupils present Neck: Neck: normal visual inspection and no lymphadenopathy Chest: Chest palpation & inspection: normal i
[2021-06-14 21:12] VITALS: BP 133/62; PULSE 96; RESP 21; O2SAT 98
[2021-06-14 21:43] LABS: Add Urine Microscopic? YES; Appearance Urine Cloudy (Clear); Bacteria Urine 1+ /hpf; Bilirubin Urine Negative (Negative); Blood Urine 1+ (Negative); Color Urine Yellow (Yellow); Glucose Urine UA Negative (Negative); Ketones Urine Negative (Negative); Leukocyte Esterase Ur 3+ LEU/UL (Negative); Mucus Urine Few /lpf; Nitrate Urine Negative (Negative); Protein Urine 2+ mg/dL (Negative); RBC Urine 21-50 /hpf (0-2); Specific Grav Ur 1.018 (1.001-1.035); Squamous Epithelial Cell Urine Rare /hpf (Few); Urobilinogen Urine Negative mg/dL (<2.0); WBC Urine >75 /hpf
[2021-06-14 22:02] LABS: Lactic Acid Reflex 1.7 mmol/L (0.7-2.1)
[2021-06-14 22:08] VITALS: BP 123/61; PULSE 93; RESP 18; O2SAT 91
[2021-06-14 23:15] VITALS: BP 127/66; PULSE 85; RESP 20; O2SAT 91
[2021-06-14] MEDS: KCL 20 MEQ/D5/0.45% SOD CHL 1,000 ML 90 ML IV CONT (23:16)
[2021-06-15] VITALS (12 sets, daily range): BP systolic 101–160; BP diastolic 44–82; PULSE 70–100; RESP 16–25; TEMP 36.7–38.6; O2SAT 91–100
--- NOTE | 2021-06-15 01:45 | PM.IMHP ---
H&P: HPI History of Present Illness Date/Time: 06/15/21 01:45 Chief Complaint: Vomiting, decreased mental status Narrative: 81-year-old female with past medical history of dementia and recent UTI with ESBL Klebsiella oxytoca 04/28/2021 who presented to the ER from care home facility via EMS due to vomiting, decreased mental status and tremors. The patient reportedly had 2 episodes of emesis at the correction. The patient's last known normal was on the . Patient arrived to the ER satting 94% on 2 L nasal cannula. Patient's family members reports that the patient usually gets like this when she has a UTI. Patient's urine in the ER is suggestive of UTI she has significant leukocytosis. Patient was afebrile on presentation to the ER. She was tachypneic with a respiratory rate of 25. Her CT of the chest was unremarkable except for small hiatal hernia. Review of Systems Review of Systems: ROS unobtainable: Yes unobtainable due to medical condition and unobtainable due to mental status [facility] Past Medical History Medical History (Updated 06/15/21 @ 04:20 by Nikole Millard DO) Alzheimer's dementia History of delirium related to hospitalizations. Arthritis Severe arthritis of right knee and hip. Gastroesophageal reflux disease History of anxiety Sick sinus syndrome Surgical History Surgical History History of cardiac pacemaker History of cholecystectomy History of surgery on left wrist (~11/2020) ORIF left wrist fracture performed at [facility]. History of tonsillectomy Family History Family History Father Chronic lymphocytic leukemia Mother Liver failure Arthritis Social History Social History (Updated 06/15/21 @ 01:54 by Nikole Millard DO) Social History: The patient is and lives with her in [place], [place] until her recent hospitalization April 2021. She has since been [facility] at [facility]. They have 3 grown children. Caretakers are in the home 24 hours a day. She ambulates with a walker and gait belt with 1 assist. 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 Lifelong nonsmoker. No alcohol or illicit substance use. Her daughter Jane Land is her healthcare power of employment attorney. Code status: Full code. Smoking status: Never smoker Second hand tobacco smoke exposure: No Alcohol intake: never Substance use: never Gender identity (if verbalized by the patient): Female Sexual Orientation (if Verbalized by the Patient): Straight or Heterosexual Spiritual care concerns: No Meds Home Medications and Allergies Home Medications Medication Instructions Recorded Confirmed Type acetaminophen 1,000 mg PO Q6-8H PRN 03/13/21 04/28/21 History ascorbic acid (vitamin C) 1 g PO DAILY 03/13/21 04/28/21 History calcium carbonate-vitamin D3 1 tablet PO DAILY 03/13/21 04/28/21 History [Calcium 500 + D] escitalopram oxalate 20 mg PO DAILY 03/13/21 04/28/21 History nortriptyline 50 mg PO HS 03/13/21 04/28/21 History pantoprazole 40 mg PO DAILY 03/13/21 04/28/21 History risperidone 1 mg PO HS 03/13/21 04/28/21 History diclofenac sodium 2 g TOPICAL QID 04/28/21 04/28/21 History melatonin 10 mg BYMOUTH HS 04/28/21 04/28/21 History polyethylene glycol 1 packet BYMOUTH DAILY 04/28/21 04/28/21 History senna-docusate sodium 2 tablet BYMOUTH BID 04/28/21 04/28/21 History tramadol 1 tablet BYMOUTH Q6H PRN 04/28/21 04/28/21 History Allergies Allergy/AdvReac Type Severity Reaction Status Date / Time donepezil Allergy Rash Verified 03/13/21 11:03 Vital Signs Vital Signs - 24 hr 06/14/21 19:30 06/14/21 21:12 06/14/21 22:08 Temperature 97.5 F L Pulse Rate 95 96 93 Respiratory Rate 22 H 21 H 18 Blood Pressure 148/101 H 133/62 123/61 Pulse Oximetry 94 98 91 06/14/21 23:15 06/15/21 01:10 Temp
[2021-06-15] MEDS: ERTAPENEM 1 GM/NS 50 ML 1 GM/50 ML BAG IVPB ×2 (03:41→20:40)
[2021-06-15 07:20] LABS: Hemoglobin 10.9 g/dL (12.0-15.0); Mean Corpuscular HGB Conc 32.1 g/dl (32-36); Mean Corpuscular Volume 90.4 fl (80-100); Mean Platelet Volume 10.4 fl (7.4-10.4); Platelet Count Result 277 k/mm3 (150-375); Red Blood Count 3.76 M/mm3 (4.2-5.4); Red Cell Distribution Width 13.1 % (11.5-14.5); White Blood Count 13.3 K/mm3 (4.5-10.0)
[2021-06-15 07:35] LABS: Anion Gap 8 mmol/L (8-16); Blood Urea Nitrogen 13 mg/dL (7-17); Calcium 8.5 mg/dL (8.4-10.2); Carbon Dioxide 26 mmol/L (22-30); Chloride 98 mmol/L (98-107); Estimated CRCL calculation 68 ml/min; Estimated Glomerular Filt Rate > 60; Glucose 128 mg/dL (65-110); Magnesium 1.7 mg/dL (1.6-2.3); Potassium 3.6 mmol/L (3.4-5.0); Sodium 132 mmol/L (137-145)
--- NOTE | 2021-06-15 08:13 | PC.NURSE ---
Admission performed by another nurse reporting no obvious skin issues. Patient did not respond to questions and was combative when being assessed so assessment was very limited. None of her vocalizations sounded like speech. She is resting quietly when left alone.
[2021-06-15 08:38] LABS: Band Neutrophils Percent 3 % (0-6); Lymphocytes Absolute Manual 0.93 K/mm3 (1.1-4.5); Monocytes Absolute Manual 0.79 K/mm3 (0.1-0.90); Monocytes Percent Manual 6 % (3-9); Neutrophils Absolute Manual 11.57 K/mm3 (1.7-7.2); Neutrophils Percent Manual 84 % (46-73); Total Cells Counted 100
[2021-06-15 08:39] LABS: Platelet Estimate Adequate (Adequate)
[2021-06-15] MEDS: MAGNESIUM SULF 2 GM/WATER 50ML 2 GM/50 ML BAG IVPB (09:10)
--- NOTE | 2021-06-15 10:53 | PC.NURSE ---
Spoke with Beverly (daughter) via telephone @ [phone]. Daughter stated that her mother has severe dementia and is worried she'll forget to call before getting out of bed and fall again like she has in the past. I did let Beverly know that she is in a room with a video camera, so we can see her 08/05 and that her mother's bed alarm is active. Patient did become fearful when we had to give her a bath and change her bed linens. Daughter stated that that is completely normal due to her dementia and history of falls. I did ask/question what her mother's baseline is. Daughter stated that her mother usually will converse with people. Patient is also able to eat, drink, and take pills, but Beverly stated recently she has had some difficulty with swallowing at times. Patient use to be able to walk a few steps with a walker to use the bathroom, but recently has been wheelchair bound. I gave the daughter an update this morning and told her I would call if anything changes, etc. Daughter plans to call back later this evening.
--- NOTE | 2021-06-15 13:36 | PM.IMPN ---
Progress Note: A&P Assessment and Plan (1) Urinary tract infection: Qualifiers: Hematuria presence: with hematuria Urinary tract infection type: site unspecified Qualified Code(s): N39.0 - Urinary tract infection, site not specified; R31.9 - Hematuria, unspecified Code(s): N39.0 - Urinary tract infection, site not specified Status: Acute Assessment and Plan: Recent ESBL Klebsiella oxytoca UTI finished antibiotics 05/07/2021. Returned to the ER with encephalopathy, pyuria, bacteriuria, leukocytosis and tachypnea. 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 Blood cultures and urine cultures are pending. Will change antibiotic therapy from Rocephin to ertapenem given recent ESBL infection. (2) Sepsis: Qualifiers: Sepsis acute organ dysfunction status: unspecified Sepsis type: sepsis due to unspecified organism Qualified Code(s): A41.9 - Sepsis, unspecified organism Code(s): A41.9 - Sepsis, unspecified organism Status: Acute Assessment and Plan: Sepsis on presentation with delirium, pyuria, bacteriuria, leukocytosis and tachypnea. Blood cultures and urine cultures pending. Empiric antibiotic therapy with ertapenem. This am patient noted to have a fever of >101, tylenol added (3) Hypokalemia: Code(s): E87.6 - Hypokalemia Status: Acute Assessment and Plan: placed on D5 half-normal saline with 20 mEq potassium chloride. K this am 3.6, mag this am 1.7 trend labs Replace as needed (4) Dementia: Qualifiers: Dementia type: Alzheimer's Alzheimer's disease onset: unspecified onset Dementia behavioral disturbance: without behavioral disturbance Qualified Code(s): G30.9 - Alzheimer's disease, unspecified; F02.80 - Dementia in other diseases classified elsewhere without behavioral disturbance Code(s): F03.90 - Unspecified dementia without behavioral disturbance Status: Acute Assessment and Plan: hold home lexapro, nortriptyline, and risperidone Monitor moods Restart medications as needed Time Spent With Patient Time with patient: Greater than 35 minutes Subjective Date/time seen: 06/15/21 13:36 Interval history: Patient is a 81-year-old female who is here for altered mental status. Patient was recently just treated for a UTI. Patient's daughter stated that her baseline is that she will communicate and interact, eat, and drink. It was stated that the patient does sometimes have a hard time to swallow and they usually give her something soft and moist neck like mashed potatoes. When talking the patient patient stated that she was doing fine she said she was little cold however she denies having chest pain or shortness of breath. She did state that she was having issues with urination and stated that it hurts to urinate. She also stated that she was having some frequency and urgency with urination. I did have a hard time with getting a review of systems as her mental status is and was in and out. Review of Systems Review of Systems: All systems reviewed & are unremarkable except as noted in HPI and below Exam Const: General: cooperative, healthy appearing, comfortable, no acute distress, well developed, confusion and lethargic Nutritional Appearance: well nourished, obese and overweight Orientation/consciousness: oriented to person, confusion, patient obtunded and lethargic Limitations: no limitations HENMT: Head: normal to inspection Ears: hearing grossly normal bilaterally General nose exam: Normal external nose present Mouth: Yes Normal oral and palatal mucosa present, Yes lip normal and Yes tongue normal Teeth and gingiva: abnormal tooth and associated gingiva and poor dentition Eyes: General: appearance normal, both eyes and all related structures Neck: Neck: normal visual inspection, full ROM, trachea midline and supple Chest: Chest palpation & i
[2021-06-15 19:55] LABS: SARS-CoV-2 RNA PCR Negative
[2021-06-15] MEDS: risperiDONE 0.5 MG TABLET PO (20:41)
[2021-06-15] MEDS: NORTRIPTYLINE HCL 25 MG CAPSULE 50 MG PO (20:42)
[2021-06-16] VITALS: BP 114/25; PULSE 111; RESP 20; TEMP 36.4; O2SAT 90
[2021-06-16 03:48] VITALS: BP 142/55; PULSE 84; RESP 18; TEMP 37.1; O2SAT 93
[2021-06-16 06:46] LABS: Basophils Percent Auto 0.3 % (0.2-1.2); Eosinophils Percent Auto 0.2 % (0-4.4); Hematocrit 33.7 % (37.0-47.0); Hemoglobin 10.5 g/dL (12.0-15.0); Immature Granulocyte Absolute 0.08 K/mm3 (0.00-0.031); Immature Granulocyte Percent A 0.5 % (0-0.5); Lymphocytes Absolute Auto 0.91 K/mm3 (0.9-3.2); Lymphocytes Percent Auto 6.2 % (18.3-44.2); Mean Corpuscular HGB Conc 31.2 g/dl (32-36); Mean Corpuscular Hemoglobin 28.3 pg (26-34); Mean Corpuscular Volume 90.8 fl (80-100); Mean Platelet Volume 10.1 fl (7.4-10.4); Monocytes Absolute Auto 1.4 K/mm3 (0.1-0.6); Monocytes Percent Auto 9.3 % (2.6-8.5); Neutrophils Absolute Auto 12.2 K/mm3 (1.3-6.7); Neutrophils Percent Auto 83.5 % (45.5-73.1); Platelet Count Result 291 k/mm3 (150-375); Red Blood Count 3.71 M/mm3 (4.2-5.4); White Blood Count 14.6 K/mm3 (4.5-10.0)
[2021-06-16 07:07] LABS: Alanine Aminotransferase 16 U/L (4-35); Albumin Level 3.9 g/dL (3.5-5.1); Alkaline Phosphatase 78 U/L (38-126); Anion Gap 15 mmol/L (8-16); Aspartate Amino Transferase 23 U/L (14-36); Bilirubin,Total 0.5 mg/dL (0.2-1.3); Blood Urea Nitrogen 14 mg/dL (7-17); Calcium 8.6 mg/dL (8.4-10.2); Carbon Dioxide 24 mmol/L (22-30); Chloride 99 mmol/L (98-107); Estimated CRCL calculation 68 ml/min; Estimated Glomerular Filt Rate > 60; Glucose 122 mg/dL (65-110); Magnesium 2.3 mg/dL (1.6-2.3); Potassium 3.8 mmol/L (3.4-5.0); Sodium 138 mmol/L (137-145)
[2021-06-16] MEDS: PANTOPRAZOLE 40 MG TABLET PO (08:14)
[2021-06-16] MEDS: ESCITALOPRAM OXALATE 10 MG TABLET 20 MG PO (08:15)
[2021-06-16 13:22] VITALS: BP 141/65; PULSE 93; RESP 16; TEMP 36.6; O2SAT 93
--- NOTE | 2021-06-16 16:14 | PM.IMPN ---
Progress Note: A&P Assessment and Plan (1) Urinary tract infection: Qualifiers: Hematuria presence: with hematuria Urinary tract infection type: site unspecified Qualified Code(s): N39.0 - Urinary tract infection, site not specified; R31.9 - Hematuria, unspecified Code(s): N39.0 - Urinary tract infection, site not specified Status: Acute Assessment and Plan: Urine culture growing pansensitive E coli -will narrow antibiotics to ceftriaxone -likely causing her confusion, suspect she will improve in the next few days -blood cultures no growth to date -she feels slightly distended on exam, will obtain bladder scan (2) Sepsis: Qualifiers: Sepsis acute organ dysfunction status: unspecified Sepsis type: sepsis due to unspecified organism Qualified Code(s): A41.9 - Sepsis, unspecified organism Code(s): A41.9 - Sepsis, unspecified organism Status: Acute Assessment and Plan: Secondary to above -continue ceftriaxone -Blood cx NGTD (3) Hypokalemia: Code(s): E87.6 - Hypokalemia Status: Acute Assessment and Plan: Resolved (4) Dementia: Qualifiers: Dementia type: Alzheimer's Alzheimer's disease onset: unspecified onset Dementia behavioral disturbance: without behavioral disturbance Qualified Code(s): G30.9 - Alzheimer's disease, unspecified; F02.80 - Dementia in other diseases classified elsewhere without behavioral disturbance Code(s): F03.90 - Unspecified dementia without behavioral disturbance Status: Acute Assessment and Plan: Patient lives [facility] and has baseline dementia but was worse according to the daughter -continue risperidone, Lexapro and nortriptyline Time Spent With Patient Time with patient: 25 - 35 minutes Subjective Date/time seen: 06/16/21 16:14 Interval history: Pt is a 81-year-old female here for confusion and UTI. Patient was seen today and answers some questions but is pretty incoherent with a lot of her conversation. She states that her name is Kimmie and that she has no pain and that she is not cold. She does not answer any other questions. Nursing staff states she is little better than she has been and has been awake and alert. Review of Systems Review of Systems: All systems reviewed & are unremarkable except as noted in HPI and below Exam Narrative: General: Well developed well nourished patient in NAD HEENT: normocephalic Neck: supple Neuro: Alert and oriented to herself only. Follows commands CV:RRR Resp:CTA, no rhonchi or wheezing Abd: Soft, partially distended. No pain to palpation. Positive bowel sounds Extremities: No swelling, erythema, or pain to palpation. Objective Data Vital Signs Vital Signs: Vital Signs - 24 hr 06/15/21 20:00 06/16/21 00:00 06/16/21 03:48 Temperature 98.4 F 97.6 F 98.8 F Pulse Rate 94 111 H 84 Respiratory Rate 20 20 18 Blood Pressure 160/60 H 114/25 L 142/55 H Pulse Oximetry 92 90 93 06/16/21 13:22 Temperature 97.8 F Pulse Rate 93 Respiratory Rate 16 Blood Pressure 141/65 H Pulse Oximetry 93 Intake/Output Intake/Output: Intake & Output 06/13/21 06/14/21 06/15/21 06/16/21 23:59 23:59 23:59 23:59 Intake Total 50 250 600 Balance 50 250 600 Meds/Results Medications: Active Medications Generic Name Dose Route Start Last Admin Trade Name Freq PRN Reason Stop Dose Admin Acetaminophen 500 mg 06/15/21 13:51 Acetaminophen 500 Mg Tablet PO Q6-8H PRN Pain Calcium Carbonate 500 mg 06/16/21 09:00 06/16/21 08:15 Calcium/Vitamin D 500 Mg Tablet PO 500 mg DAILY ELIZABETH Administration Escitalopram Oxalate 20 mg 06/16/21 09:00 06/16/21 08:15 Escitalopram Oxalate 10 Mg Tablet PO 20 mg DAILY ELIZABETH Administration Ceftriaxone Sodium/Dextrose 1 gm in 50 mls @ 100 mls/hr 06/16/21 17:00 Rocephin 1 Gm/D5w 50 Ml IVPB Q24H ELIZABETH Nortriptyline HCl 50 mg 0
[2021-06-16] MEDS: risperiDONE 0.5 MG TABLET PO (20:47)
[2021-06-16] MEDS: MELATONIN 3 MG TABLET PO (20:47)
[2021-06-16] MEDS: NORTRIPTYLINE HCL 25 MG CAPSULE 50 MG PO (20:47)
[2021-06-16 22:00] VITALS: BP 126/90; PULSE 86; RESP 18; TEMP 36.4; O2SAT 94
[2021-06-17 06:00] VITALS: BP 152/82; PULSE 77; RESP 16; TEMP 36.7; O2SAT 94
[2021-06-17 07:06] LABS: Basophils Percent Auto 0.3 % (0.2-1.2); Eosinophils Absolute Auto 0.2 K/mm3 (0-0.3); Eosinophils Percent Auto 2.1 % (0-4.4); Hematocrit 33.7 % (37.0-47.0); Hemoglobin 10.6 g/dL (12.0-15.0); Immature Granulocyte Absolute 0.03 K/mm3 (0.00-0.031); Immature Granulocyte Percent A 0.3 % (0-0.5); Lymphocytes Absolute Auto 0.81 K/mm3 (0.9-3.2); Lymphocytes Percent Auto 9.2 % (18.3-44.2); Mean Corpuscular HGB Conc 31.5 g/dl (32-36); Mean Corpuscular Hemoglobin 27.9 pg (26-34); Mean Corpuscular Volume 88.7 fl (80-100); Mean Platelet Volume 10.2 fl (7.4-10.4); Monocytes Percent Auto 11.2 % (2.6-8.5); Neutrophils Absolute Auto 6.8 K/mm3 (1.3-6.7); Neutrophils Percent Auto 76.9 % (45.5-73.1); Platelet Count Result 314 k/mm3 (150-375); Red Cell Distribution Width 12.9 % (11.5-14.5); White Blood Count 8.9 K/mm3 (4.5-10.0)
[2021-06-17 07:22] LABS: Anion Gap 11 mmol/L (8-16); Blood Urea Nitrogen 14 mg/dL (7-17); Calcium 8.8 mg/dL (8.4-10.2); Carbon Dioxide 27 mmol/L (22-30); Chloride 98 mmol/L (98-107); Estimated CRCL calculation 78 ml/min; Estimated Glomerular Filt Rate > 60; Glucose 120 mg/dL (65-110); Sodium 136 mmol/L (137-145)
[2021-06-17] MEDS: PANTOPRAZOLE 40 MG TABLET PO (10:30)
[2021-06-17] MEDS: ESCITALOPRAM OXALATE 10 MG TABLET 20 MG PO (10:30)
[2021-06-17 10:59] LABS: Glucose Point of Care 87 mg/dl (65-105)
[2021-06-17 14:00] VITALS: BP 134/78; PULSE 82; RESP 14; TEMP 36.9; O2SAT 100
--- NOTE | 2021-06-17 15:54 | PM.IMPN ---
Progress Note: A&P Assessment and Plan (1) Urinary tract infection: Qualifiers: Hematuria presence: with hematuria Urinary tract infection type: site unspecified Qualified Code(s): N39.0 - Urinary tract infection, site not specified; R31.9 - Hematuria, unspecified Code(s): N39.0 - Urinary tract infection, site not specified Status: Acute Assessment and Plan: Urine culture growing pansensitive E coli -continue ceftriaxone -likely causing her confusion, sounds like she is improving and close to baseline -blood cultures no growth to date -bladder scan is not show any retention (2) Sepsis: Qualifiers: Sepsis acute organ dysfunction status: unspecified Sepsis type: sepsis due to unspecified organism Qualified Code(s): A41.9 - Sepsis, unspecified organism Code(s): A41.9 - Sepsis, unspecified organism Status: Acute Assessment and Plan: Resolved. - Secondary to above -continue ceftriaxone -Blood cx NGTD (3) Hypokalemia: Code(s): E87.6 - Hypokalemia Status: Acute Assessment and Plan: Resolved (4) Dementia: Qualifiers: Dementia type: Alzheimer's Alzheimer's disease onset: unspecified onset Dementia behavioral disturbance: without behavioral disturbance Qualified Code(s): G30.9 - Alzheimer's disease, unspecified; F02.80 - Dementia in other diseases classified elsewhere without behavioral disturbance Code(s): F03.90 - Unspecified dementia without behavioral disturbance Status: Acute Assessment and Plan: Patient lives at a memory [facility] and has baseline dementia but was worse according to the daughter -continue risperidone, Lexapro and nortriptyline -spoke with the assisted living, RN, and both daughters about the patient's case. She seems very weak and the daughter is very concerned. She said that she is a significant fall risk and they have private duty sitters at the assisted living due to this. -the facility states that she has been declining for some time now and is in the wheelchair more than she usually is. She is able to fit and walks with a walker at times but lately has been mostly in the wheelchair due to pain in her knees -facility DON has evaluated her and states she is getting pretty weak and is worried about her safety at the assisted living -may need to consider SNF or prison placement -I called the daughter, Jane, after PT assessment and left her a message to call me back -continue PT and OT Subjective Date/time seen: 06/17/21 15:54 Interval history: Pt is a 81-year-old female here for confusion and UTI. Patient was seen today and answers some questions but is pretty incoherent with a lot of her conversation. She states that her name is Kimmie and that she has no pain. She does not answer any other questions coherently. Spoke with the assisted living, daughter the, and RN about the patient's case. He assisted in getting set the patient usually is in the wheelchair but can pivot to go the bathroom. She takes some steps with the walker but not much any more. She has declined pretty significantly in the last couple months. She said she is usually alert and oriented x1 at baseline Exam Narrative: General: Well developed well nourished patient in NAD HEENT: normocephalic Neck: supple Neuro: Alert and oriented to herself only. Follows commands CV:RRR Resp:CTA, no rhonchi or wheezing Abd: Soft, non distended. No pain to palpation. Positive bowel sounds Extremities: No swelling, erythema, or pain to palpation. Objective Data Vital Signs Vital Signs: Vital Signs - 24 hr 06/16/21 22:00 06/17/21 06:00 Temperature 97.6 F 98.1 F Pulse Rate 86 77 Respiratory Rate 18 16 Blood Pressure 126/90 152/82 H Pulse Oximetry 94 94 Intake/Output Intake/Output: Intake & Output 06/14/21 06/15/21 06/16/21 06/17/21 23:59 23:59 23:59 23:59 Intake Total 50 250 1270 290
--- NOTE | 2021-06-17 18:16 | PC.NURSE ---
Left voice message for patient's daughter Jane regarding requested update.
[2021-06-17] MEDS: risperiDONE 0.5 MG TABLET PO (18:59)
[2021-06-17] MEDS: MELATONIN 3 MG TABLET PO (20:05)
[2021-06-17] MEDS: NORTRIPTYLINE HCL 25 MG CAPSULE 50 MG PO (20:05)
[2021-06-18 06:00] VITALS: BP 153/79; PULSE 76; RESP 18; TEMP 36.2; O2SAT 95
[2021-06-18 07:02] LABS: Hematocrit 37.3 % (37.0-47.0); Hemoglobin 11.8 g/dL (12.0-15.0); Mean Corpuscular HGB Conc 31.6 g/dl (32-36); Mean Corpuscular Hemoglobin 28.4 pg (26-34); Mean Corpuscular Volume 89.9 fl (80-100); Mean Platelet Volume 10.2 fl (7.4-10.4); Platelet Count Result 350 k/mm3 (150-375); Red Blood Count 4.15 M/mm3 (4.2-5.4); Red Cell Distribution Width 12.9 % (11.5-14.5); White Blood Count 7.8 K/mm3 (4.5-10.0)
[2021-06-18 07:11] LABS: Anion Gap 6 mmol/L (8-16); Blood Urea Nitrogen 12 mg/dL (7-17); Carbon Dioxide 29 mmol/L (22-30); Chloride 101 mmol/L (98-107); Potassium 3.8 mmol/L (3.4-5.0); Sodium 136 mmol/L (137-145)
[2021-06-18 07:12] LABS: Calcium 9.2 mg/dL (8.4-10.2); Estimated CRCL calculation 68 ml/min; Estimated Glomerular Filt Rate > 60; Glucose 119 mg/dL (65-110)
[2021-06-18] MEDS: ESCITALOPRAM OXALATE 10 MG TABLET 20 MG PO (09:47)
[2021-06-18] MEDS: PANTOPRAZOLE 40 MG TABLET PO (09:47)
[2021-06-18 14:00] VITALS: BP 164/64; PULSE 85; RESP 18; TEMP 36.5; O2SAT 98
--- NOTE | 2021-06-18 16:43 | PM.DS ---
DS: Admitting Diagnosis Admitting Diagnosis UTI sepsis <Mohini Albright PA-C - Last Filed: 06/19/21 14:35> DS: Discharge Diagnosis Discharge Diagnosis (1) Urinary tract infection: Qualifiers: Hematuria presence: with hematuria Urinary tract infection type: site unspecified Qualified Code(s): N39.0 - Urinary tract infection, site not specified; R31.9 - Hematuria, unspecified <Mohinisheree Albright PA-C - Last Filed: 06/19/21 14:35> Code(s): N39.0 - Urinary tract infection, site not specified <Mohini AKeely Albright PA-C - Last Filed: 06/19/21 14:35> Status: Acute <Mohinisheree Albright PA-C - Last Filed: 06/19/21 14:35> Assessment and Plan: Urine culture growing pansensitive E coli -patient was on ceftriaxone and transition to cefdinir -this was likely causing her confusion/weakness which improved with treatment -blood cultures no growth to date and will be monitored until finalized <Mohini Albright PA-C - Last Filed: 06/19/21 14:35> (2) Sepsis: Qualifiers: Sepsis acute organ dysfunction status: unspecified Sepsis type: sepsis due to unspecified organism Qualified Code(s): A41.9 - Sepsis, unspecified organism <Mohini AnneKeely Albright PA-C - Last Filed: 06/19/21 14:35> Code(s): A41.9 - Sepsis, unspecified organism <Mohini Albright PA-C - Last Filed: 06/19/21 14:35> Status: Acute <Mohinisheree Albright PA-C - Last Filed: 06/19/21 14:35> Assessment and Plan: Resolved. -Secondary to above -continue cefdinir outpatient -Blood cx NGTD <SUSAN Navarro-C - Last Filed: 06/19/21 14:35> (3) Hypokalemia: Code(s): E87.6 - Hypokalemia <Mohini Albright PA-C - Last Filed: 06/19/21 14:35> Status: Acute <Mohinisheree Albright PA-C - Last Filed: 06/19/21 14:35> Assessment and Plan: Resolved <Mohini Albright PA-C - Last Filed: 06/19/21 14:35> (4) Dementia: Qualifiers: Alzheimer's disease onset: unspecified onset Dementia behavioral disturbance: without behavioral disturbance Dementia type: Alzheimer's Qualified Code(s): G30.9 - Alzheimer's disease, unspecified; F02.80 - Dementia in other diseases classified elsewhere without behavioral disturbance <Mohini Albright PA-C - Last Filed: 06/19/21 14:35> Code(s): F03.90 - Unspecified dementia without behavioral disturbance <Mohini Albright PA-C - Last Filed: 06/19/21 14:35> Status: Acute <Mohini Albright PA-C - Last Filed: 06/19/21 14:35> Assessment and Plan: Patient lives at a memory [facility] and has baseline dementia but was worse according to the daughter -continue risperidone, Lexapro and nortriptyline -spoke with the assisted living, RN, and both daughters about the patient's case. She seems very weak and the daughter is very concerned. She said that she is a significant fall risk and they have private duty sitters at the assisted living due to this. -the facility states that she has been declining for some time now and is in the wheelchair more than she usually is. She is able to fit and walks with a walker at times but lately has been mostly in the wheelchair due to pain in her knees -facility DON has evaluated her and states she is getting pretty weak and is worried about her safety at the assisted living and recommended rehab prior to coming back to the assisted living -spoke with the daughter, Jane, extensively with my supervising physician about this case. Daughter was unhappy that she was unable to go back to assisted living which is understandable. For the safety of her mom, we recommend placement at [place] [facility] to help her gain strength prior to going back to assisted living. The patient's daughter states that they have sitters 24/7 and is worried about her being at a swing bed. We have spoken to the hospital who will allow a support person for Kimmie during her stay if
== END 2021-06-18 18:12 | disposition swing bed (61) | DRG 872 ==
LOC: ANHED 23:03 → ANH3MEDSUR 06-16 07:23
PROVIDERS: Internal Medicine; Nurse Practitioner; Admitting Provider Internal Medicine; Emergency Provider Emergency Medicine; PCP Internal Medicine Geriatric Medicine; Visit Provider Physician Assistant
DX: A41.9 Sepsis, unspecified organism; N39.0 Urinary tract infection, site not specified; Z20.822 Contact with and (suspected) exposure to COVID-19; R31.9 Hematuria, unspecified; B96.20 Unspecified Escherichia coli [E. coli] as the cause of diseases classified elsewhere; E87.6 Hypokalemia; G30.9 Alzheimer's disease, unspecified; F02.80 Dementia in other diseases classified elsewhere, unspecified severity, without behavioral disturbance, psychotic disturbance, mood disturbance, and anxiety; K21.9 Gastro-esophageal reflux disease without esophagitis; Z79.899 Other long term (current) drug therapy; Z95.0 Presence of cardiac pacemaker; Z99.3 Dependence on wheelchair
CPT/HCPCS: 36415; 51701; 70450; 71250; 80048; 80053; 81001; 82948; 83605; 83690; 83735; 85025; 85027; 87040; 87077; 87086; 87088; 87186; 96365; 97161; 97166; 97530; 99285; A9270; C9803; J0131; J0696; J1335; J3475; J3480; U0003; U0005

== ENCOUNTER 2021-06-18 18:59 | Inpatient (IN) | payer MEDICARE, SELFPAY ==
--- NOTE | 2021-06-18 19:17 | PM.IMHP ---
H&P: HPI History of Present Illness Date/Time: 06/18/21 19:17 Chief Complaint: Weakness, difficulty ambulating Narrative: 81-year-old woman with a history of dementia, sick sinus syndrome status post pacer, and reflux transferred from [facility] to here for rehabilitation after being diagnosed with UTI and sepsis. She was admitted to [facility] on 06/14 it initially treated with ertapenem and on the was changed to Rocephin after her urine was found to contain E coli that was pansensitive. She continues to take cefdinir. She is a resident of the memory care at the [facility]. Review of Systems Review of Systems: ROS unobtainable: Yes unobtainable due to mental status ( Dementia) PMFSH Past Medical History Medical History Alzheimer's dementia History of delirium related to hospitalizations. Arthritis Severe arthritis of right knee and hip. Gastroesophageal reflux disease History of anxiety Sick sinus syndrome Surgical History Surgical History History of cardiac pacemaker History of cholecystectomy History of surgery on left wrist (~11/2020) ORIF left wrist fracture performed at [facility]. History of tonsillectomy Family History Family History Father Chronic lymphocytic leukemia Mother Liver failure Arthritis Social History Social History Social History: The patient is and lives with her in [place], [place] until her recent hospitalization April 2021. She has since been residing at the [facility]. They have 3 grown children. Caretakers are in the home 24 hours a day. She ambulates with a walker and gait belt with 1 assist. 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 Lifelong nonsmoker. No alcohol or illicit substance use. Her daughter Jane Land is her healthcare power of district attorney. Code status: Full code. Smoking status: Never smoker Second hand tobacco smoke exposure: No Alcohol intake: never Substance use: never Gender identity (if verbalized by the patient): Female Sexual Orientation (if Verbalized by the Patient): Straight or Heterosexual Spiritual care concerns: No Meds Home Medications and Allergies Home Medications Medication Instructions Recorded Confirmed Type acetaminophen 500 mg PO Q6-8H PRN 03/13/21 06/18/21 History calcium carbonate-vitamin D3 1 tablet PO DAILY 03/13/21 06/18/21 History [Calcium 500 + D] escitalopram oxalate 20 mg PO DAILY 03/13/21 06/18/21 History nortriptyline 50 mg PO HS 03/13/21 06/18/21 History pantoprazole 40 mg PO DAILY 03/13/21 06/18/21 History risperidone 0.5 mg PO HS 03/13/21 06/18/21 History diclofenac sodium 2 g TOPICAL QID 04/28/21 06/18/21 History melatonin 10 mg BYMOUTH HS 04/28/21 06/18/21 History DAVID-COLACE 1 tab-cap PO DAILY PRN 06/15/21 06/15/21 History cefdinir 300 mg PO Q12HR 6 Days #12 cap 06/18/21 06/18/21 Rx Allergies Allergy/AdvReac Type Severity Reaction Status Date / Time donepezil Allergy Rash Verified 03/13/21 11:03 Exam Const: General: comfortable and no acute distress Other: Alert, social HENMT: Mouth: Yes moist mucous membranes Resp: Effort & Inspection: normal respiratory effort Auscultation: clear to auscultation bilaterally, no rales, no rhonchi and no wheezes Cardio: Rate: regular rate Rhythm: regular rhythm Heart sounds: no murmurs Other: distal pulses are full and symmetric. Extremities are warm dry and pink. GI: GI Palp: Yes Soft to palpation, No Tenderness to palpation present (GI) and No Guarding due to palpation present (GI) Auscultation: normal bowel sounds Skin: General skin exam: normal color and no rashes or lesions noted Neuro: Cognition (Neuro): ab
--- NOTE | 2021-06-18 19:30 | ADMGEN ---
This patient, Kimmie Li, was admitted to 2nd Floor Room 206-1. Patient/family oriented to hospital policies and general routines including ID bracelet, bed and alarms, visiting hours, pain management, procedures, bathroom and other care routines, personal items, smoking policy, room service/diet, and visiting hours. Information on how to activate the Rapid Response Team has been discussed. Patient/Family are encouraged to report perceived risks to care and to ask questions if they do not understand what they are told or what they should do. Patient awake. Unable to give name. Disoriented to time and place also. Color pink. Skin warm and dry. Respirations even and unlabored. LCTA. Abdomen soft and non-distended with + BS present. No edema noted. Patient denies pain. Patient screamed when being transferred from stretcher to bed and when nurses pulled her up in the bed. Patient screams that she's afraid she's going to fall. Bed alarm on.
[2021-06-18] MEDS: NORTRIPTYLINE HCL 25 MG CAPSULE 50 MG PO (20:41)
[2021-06-18] MEDS: risperiDONE 0.25 MG TABLET 0.5 MG PO (20:41)
[2021-06-18] MEDS: CEFDINIR 300 MG CAPSULE PO (20:41)
[2021-06-18] MEDS: MELATONIN 5 MG TABLET 10 MG BY MOUTH (20:41)
[2021-06-18] MEDS: DICLOFENAC SODIUM 1% 100 GM GEL (*BKC) 1 APPLIC TOPICAL (22:00)
[2021-06-18 23:46] VITALS: BP 141/65; PULSE 89; RESP 14; TEMP 36.6; O2SAT 100
--- NOTE | 2021-06-19 07:57 | PM.IMPN ---
Progress Note: A&P Assessment and Plan (1) Weakness: Code(s): R53.1 - Weakness Status: Acute Assessment and Plan: PT and OT to see. 06/19/2021 Pt to work with PT and OT for the following: Improve movement or ability, Prevent disability, Rehab after hospitalization, Work on balance to prevent a slip or fall, Learn to use assistive devices like a walker or cane as needed (2) Alzheimer's dementia: Qualifiers: Alzheimer's disease onset: late-onset Dementia behavioral disturbance: with behavioral disturbance Qualified Code(s): G30.1 - Alzheimer's disease with late onset; F02.81 - Dementia in other diseases classified elsewhere with behavioral disturbance Code(s): G30.9 - Alzheimer's disease, unspecified; F02.80 - Dementia in other diseases classified elsewhere without behavioral disturbance Status: Acute Assessment and Plan: Patient has history of delirium associated with hospitalizations. Will monitor. 06/19/2021 Continue risperidone, nortryptyline, and Lexapro, Pt room close to nurses station for close observation and monitoring (3) UTI (urinary tract infection): Code(s): N39.0 - Urinary tract infection, site not specified Status: Acute Assessment and Plan: Omnicef 300 b.i.d. for 6 days. 06/19/2021 Last date for Omnicef 06/24/2021, Urine Cx and Sensitivity resulted (4) Gastroesophageal reflux disease: Qualifiers: Esophagitis presence: esophagitis presence not specified Qualified Code(s): K21.9 - Gastro-esophageal reflux disease without esophagitis Code(s): K21.9 - Gastro-esophageal reflux disease without esophagitis Status: Acute Assessment and Plan: Continue pantoprazole (5) Arthritis: Code(s): M19.90 - Unspecified osteoarthritis, unspecified site Status: Acute Assessment and Plan: acetaminophen as needed and topical diclofenac. Subjective Date/time seen: 06/19/21 07:57 Kimmie Li is a 81 year old female who comes to the hospital for rehabilitation due to deconditioning. She will need rehabilitation so that she may return safely to [facility]. Pt was treated for UTI with Ertapenem then changed to Rocephin when urine Cx showed E coli. Currently Pt is on Omnicef for 1 week. PMHx includes Alzheimer's Dementia (severe), GERD, Anxiety, SSS, Arthritis. Due to her Dementia Pt is a poor historian. Review of Systems Review of Systems: ROS unobtainable: Yes unobtainable due to mental status Exam Const: General: cooperative, comfortable, no acute distress, alert, awake, Physically active and other (BMI no entered in chart at this time) Resp: Effort & Inspection: normal respiratory effort Auscultation: clear to auscultation bilaterally Cardio: Rate: regular rate Heart sounds: S1 normal heart sound present and S2 normal heart sound present GI: GI Palp: Yes Soft to palpation and No Tenderness to palpation present (GI) Auscultation: normal bowel sounds Skin: General skin exam: dry skin Neuro: General: oriented to person Extrem: General: no pedal edema Psych: Appearance: grossly normal Affect: Indifferent affect present Attitude: cooperative Objective Data Vital Signs Vital Signs: Vital Signs - 24 hr 06/18/21 23:46 Temperature 97.8 F Pulse Rate 89 Respiratory Rate 14 Blood Pressure 141/65 H Pulse Oximetry 100 Intake/Output Intake/Output: Intake & Output 06/16/21 06/17/21 06/18/21 06/19/21 23:59 23:59 23:59 23:59 Intake Total 100 Balance 100 Meds/Results Medications: Active Medications Generic Name Dose Route Start Last Admin Trade Name Freq PRN Reason Stop Dose Admin Acetaminophen 500 mg 06/18/21 19:25 Acetaminophen 500 Mg Tablet PO Q6-8H PRN Pain Calcium Carbonate 1 tablet 06/19/21 09:00 Calcium/Vitamin D 250 Mg Tablet PO DAILY ELIZABETH Cefdinir 300 mg 06/18/21 21:00 06/18/21 20:41 Cefdinir 300 Mg Capsule PO
[2021-06-19 08:00] VITALS: BP 154/71; PULSE 85; RESP 18; TEMP 36.3; O2SAT 90
[2021-06-19] MEDS: CEFDINIR 300 MG CAPSULE PO ×2 (09:18→21:40)
[2021-06-19] MEDS: CALCIUM/VITAMIN D 250 MG TABLET 1 TABLET PO (09:18)
[2021-06-19] MEDS: DICLOFENAC SODIUM 1% 100 GM GEL (*BKC) 1 APPLIC TOPICAL ×4 (09:18→21:38)
[2021-06-19] MEDS: ESCITALOPRAM OXALATE 10 MG TABLET 20 MG PO (09:18)
[2021-06-19] MEDS: PANTOPRAZOLE 40 MG TABLET PO (09:18)
[2021-06-19 16:00] VITALS: BP 145/68; PULSE 84; RESP 18; TEMP 37.2; O2SAT 98
[2021-06-19] MEDS: MELATONIN 5 MG TABLET 10 MG BY MOUTH (21:39)
[2021-06-19] MEDS: risperiDONE 0.25 MG TABLET 0.5 MG PO (21:39)
[2021-06-19] MEDS: NORTRIPTYLINE HCL 25 MG CAPSULE 50 MG PO (21:39)
[2021-06-19 23:26] VITALS: BP 139/60; PULSE 86; RESP 20; TEMP 36.5; O2SAT 92
[2021-06-20 08:00] VITALS: BP 128/64; PULSE 92; RESP 18; TEMP 36.4; O2SAT 93
[2021-06-20] MEDS: ESCITALOPRAM OXALATE 10 MG TABLET 20 MG PO (08:15)
[2021-06-20] MEDS: PANTOPRAZOLE 40 MG TABLET PO (08:15)
[2021-06-20] MEDS: CALCIUM/VITAMIN D 250 MG TABLET 1 TABLET PO (08:15)
[2021-06-20] MEDS: CEFDINIR 300 MG CAPSULE PO ×2 (08:15→20:56)
[2021-06-20] MEDS: DICLOFENAC SODIUM 1% 100 GM GEL (*BKC) 1 APPLIC TOPICAL ×4 (08:16→21:13)
[2021-06-20 16:00] VITALS: BP 148/71; PULSE 93; RESP 18; TEMP 36.7; O2SAT 95
[2021-06-20] MEDS: risperiDONE 0.25 MG TABLET 0.5 MG PO (20:56)
[2021-06-20] MEDS: NORTRIPTYLINE HCL 25 MG CAPSULE 50 MG PO (20:56)
[2021-06-20] MEDS: MELATONIN 5 MG TABLET 10 MG BY MOUTH (20:56)
[2021-06-20 23:41] VITALS: BP 148/55; PULSE 78; RESP 18; TEMP 36.6; O2SAT 94
[2021-06-21 08:00] VITALS: BP 146/84; PULSE 78; RESP 20; TEMP 36.6; O2SAT 96
[2021-06-21] MEDS: PANTOPRAZOLE 40 MG TABLET PO (08:25)
[2021-06-21] MEDS: ESCITALOPRAM OXALATE 10 MG TABLET 20 MG PO (08:45)
[2021-06-21] MEDS: DICLOFENAC SODIUM 1% 100 GM GEL (*BKC) 1 APPLIC TOPICAL ×4 (08:45→21:00)
[2021-06-21] MEDS: CALCIUM/VITAMIN D 250 MG TABLET 1 TABLET PO (08:45)
[2021-06-21] MEDS: CEFDINIR 300 MG CAPSULE PO ×2 (08:45→20:09)
[2021-06-21] MEDS: IBUPROFEN 400 MG TABLET 800 MG PO ×2 (10:43→20:09)
--- NOTE | 2021-06-21 12:21 | PC.NURSE ---
uP TO COMMODE WITH ASSIST OF 2 AND USE OF WALKER, NEEDS INSTRUCTION ON HOW TO MOVE, RETURNED TO CHAIR AND LUNCH SET UP FOR PATIENT
[2021-06-21] MEDS: MELATONIN 5 MG TABLET 10 MG BY MOUTH (20:09)
[2021-06-21] MEDS: risperiDONE 0.25 MG TABLET 0.5 MG PO (20:11)
[2021-06-21] MEDS: NORTRIPTYLINE HCL 25 MG CAPSULE 50 MG PO (21:30)
[2021-06-22] VITALS: BP 121/67; PULSE 63; RESP 16; TEMP 36.6; O2SAT 96
[2021-06-22 08:00] VITALS: BP 129/69; PULSE 73; RESP 14; TEMP 36.6; O2SAT 92
[2021-06-22] MEDS: CEFDINIR 300 MG CAPSULE PO ×2 (08:09→20:37)
[2021-06-22] MEDS: DICLOFENAC SODIUM 1% 100 GM GEL (*BKC) 1 APPLIC TOPICAL ×4 (08:09→21:27)
[2021-06-22] MEDS: CALCIUM/VITAMIN D 250 MG TABLET 1 TABLET PO (08:09)
[2021-06-22] MEDS: PANTOPRAZOLE 40 MG TABLET PO (08:09)
[2021-06-22] MEDS: ESCITALOPRAM OXALATE 10 MG TABLET 20 MG PO (08:09)
--- NOTE | 2021-06-22 14:48 | PCOTNOTE ---
OT assisted nursing with chair to bed transfer with use of AE, mod assist x 2 and max verbal, visual cues to turn and utilize walker appropriately. MS
[2021-06-22 16:00] VITALS: BP 143/89; PULSE 96; TEMP 36.6; O2SAT 98
[2021-06-22] MEDS: risperiDONE 0.25 MG TABLET 0.5 MG PO (20:26)
[2021-06-22] MEDS: MELATONIN 5 MG TABLET 10 MG BY MOUTH (20:26)
[2021-06-22] MEDS: NORTRIPTYLINE HCL 25 MG CAPSULE 50 MG PO (20:27)
--- NOTE | 2021-06-22 23:35 | PC.NURSE ---
[facility] care provided.
[2021-06-23] VITALS: BP 122/56; PULSE 74; RESP 20; TEMP 36.3; O2SAT 94
[2021-06-23 08:00] VITALS: BP 136/71; PULSE 81; RESP 17; TEMP 36.6; O2SAT 98
[2021-06-23] MEDS: CEFDINIR 300 MG CAPSULE PO ×2 (08:45→20:17)
[2021-06-23] MEDS: DICLOFENAC SODIUM 1% 100 GM GEL (*BKC) 1 APPLIC TOPICAL ×3 (08:45→22:44)
[2021-06-23] MEDS: ESCITALOPRAM OXALATE 10 MG TABLET 20 MG PO (08:45)
[2021-06-23] MEDS: PANTOPRAZOLE 40 MG TABLET PO (08:45)
[2021-06-23] MEDS: CALCIUM/VITAMIN D 250 MG TABLET 1 TABLET PO (08:45)
--- NOTE | 2021-06-23 15:00 | PCPTNOTE ---
attended plan of care meeting at 1130 am discussing with daughter discharge planning and status of patient
[2021-06-23 15:21] VITALS: BP 123/85; PULSE 88; RESP 18; TEMP 36.6; O2SAT 92
[2021-06-23] MEDS: MELATONIN 5 MG TABLET 10 MG BY MOUTH (20:17)
[2021-06-23] MEDS: risperiDONE 0.25 MG TABLET 0.5 MG PO (20:17)
[2021-06-23] MEDS: NORTRIPTYLINE HCL 25 MG CAPSULE 50 MG PO (20:18)
[2021-06-23 23:33] VITALS: BP 126/52; PULSE 86; RESP 18; TEMP 36.5; O2SAT 95
--- NOTE | 2021-06-23 23:36 | PC.NURSE ---
Pt lying quietly in bed, confused and unable to answer questions qppropriately. Pt follows simple commands, pt depend is dry at this time, repositioned in bed c covers and replaced, pt resting c call pardo in place.
--- NOTE | 2021-06-24 03:00 | PC.NURSE ---
Pt sleeping, no distress noted, call pardo in reach.
[2021-06-24 08:00] VITALS: BP 132/78; PULSE 70; PULSE 86; RESP 15; RESP 18; TEMP 36.3; O2SAT 94; O2SAT 95
[2021-06-24] MEDS: CALCIUM/VITAMIN D 250 MG TABLET 1 TABLET PO (08:22)
[2021-06-24] MEDS: CEFDINIR 300 MG CAPSULE PO ×2 (08:22→20:55)
[2021-06-24] MEDS: DICLOFENAC SODIUM 1% 100 GM GEL (*BKC) 1 APPLIC TOPICAL ×3 (08:22→20:56)
[2021-06-24] MEDS: PANTOPRAZOLE 40 MG TABLET PO (08:22)
[2021-06-24] MEDS: ESCITALOPRAM OXALATE 10 MG TABLET 20 MG PO (08:22)
[2021-06-24 15:46] VITALS: BP 146/68; PULSE 85; RESP 18; TEMP 36.9; O2SAT 94
--- NOTE | 2021-06-24 18:13 | PC.NURSE ---
Assisted patient to stand position and used gait belt with walker and 1 assist to get from chair to bed, able to take simple light sounded directions, side rails up and alarm on for safety,
[2021-06-24] MEDS: NORTRIPTYLINE HCL 25 MG CAPSULE 50 MG PO (20:55)
[2021-06-24] MEDS: MELATONIN 5 MG TABLET 10 MG BY MOUTH (20:55)
[2021-06-24] MEDS: risperiDONE 0.25 MG TABLET 0.5 MG PO (20:55)
[2021-06-25] VITALS: BP 132/66; PULSE 84; RESP 18; TEMP 36.3; O2SAT 93
--- NOTE | 2021-06-25 07:52 | PM.DS ---
DS: Admitting Diagnosis Discharge Date 06/25/2021 Admitting Diagnosis Weakness DS: Discharge Diagnosis Discharge Diagnosis (1) Weakness: Code(s): R53.1 - Weakness Status: Acute Assessment and Plan: PT and OT to see. 06/19/2021 Pt to work with PT and OT for the following: Improve movement or ability, Prevent disability, Rehab after hospitalization, Work on balance to prevent a slip or fall, Learn to use assistive devices like a walker or cane as needed (2) Alzheimer's dementia: Qualifiers: Alzheimer's disease onset: late-onset Dementia behavioral disturbance: with behavioral disturbance Qualified Code(s): G30.1 - Alzheimer's disease with late onset; F02.81 - Dementia in other diseases classified elsewhere with behavioral disturbance Code(s): G30.9 - Alzheimer's disease, unspecified; F02.80 - Dementia in other diseases classified elsewhere without behavioral disturbance Status: Acute Assessment and Plan: Patient has history of delirium associated with hospitalizations. Will monitor. 06/19/2021 Continue risperidone, nortryptyline, and Lexapro, Pt room close to nurses station for close observation and monitoring (3) UTI (urinary tract infection): Code(s): N39.0 - Urinary tract infection, site not specified Status: Acute Assessment and Plan: Omnicef 300 b.i.d. for 6 days. 06/19/2021 Last date for Omnicef 06/24/2021, Urine Cx and Sensitivity resulted (4) Gastroesophageal reflux disease: Qualifiers: Esophagitis presence: esophagitis presence not specified Qualified Code(s): K21.9 - Gastro-esophageal reflux disease without esophagitis Code(s): K21.9 - Gastro-esophageal reflux disease without esophagitis Status: Acute Assessment and Plan: Continue pantoprazole Discontinued on discharge (5) Arthritis: Code(s): M19.90 - Unspecified osteoarthritis, unspecified site Status: Acute Assessment and Plan: acetaminophen as needed and topical diclofenac. DS: Summary Hospital Course Reason for hospitalization: Weakness status post urosepsis Hospital Course: Kimmie Li is a 81 year old female who comes to the hospital for rehabilitation due to deconditioning. She will need rehabilitation so that she may return safely to [place] [facility]. Pt was treated for UTI with Ertapenem then changed to Rocephin when urine Cx showed E coli. Currently Pt is on Omnicef for 1 week. PMHx includes Alzheimer's Dementia (severe), GERD, Anxiety, SSS, Arthritis. Due to her Dementia Pt is a poor historian. Patient has completed her physical therapy and she will be discharging back to [facility] with PT OT and speech therapy. Time spent 60 minutes Time Spent with Patient Time attestation: Total time spent providing and/or coordinating discharge services: 60 minutes Exam Narrative: GENERAL: Remains demented in no apparent distress. HEAD: normocephalic, atraumatic. EYES: PERRL. Sclera clear/white. Vision is grossly intact. EARS: External ears normal, auditory canals clear and without drainage, TMs normal without perforation. Hearing grossly intact. NOSE: External nose normal with no obvious nasal discharge, nares without redness, no rhinorrhea. THROAT: Mucous membranes moist, posterior pharynx clear. NECK: Neck supple, non-tender without lymphadenopathy, masses or thyromegaly. CARDIOVASCULAR: Regular rate and rhythm without murmurs, gallops, or rubs. RESPIRATORY: Clear to auscultation. Breath sounds equal bilaterally. No wheezes, rales, or rhonchi. GASTROINTESTINAL: Abdomen soft, non-tender, nondistended. Bowel sounds are active. No hepato-splenomegaly, or palpable masses. No guarding. SKIN: warm, intact with no suspicious lesions or rash, good texture and turgor. NEURO: Remains demented. There were no obvious focal neurologic abnormalities. EXTREMITIES: Normal range of motion. No edema. No calf tenderness. Negative Homans si
[2021-06-25 07:55] VITALS: BP 137/73; PULSE 80; RESP 17; TEMP 37.1; O2SAT 96
[2021-06-25] MEDS: DICLOFENAC SODIUM 1% 100 GM GEL (*BKC) 1 APPLIC TOPICAL ×2 (08:14→12:57)
[2021-06-25] MEDS: PANTOPRAZOLE 40 MG TABLET PO (08:14)
[2021-06-25] MEDS: ESCITALOPRAM OXALATE 10 MG TABLET 20 MG PO (08:14)
[2021-06-25] MEDS: CALCIUM/VITAMIN D 250 MG TABLET 1 TABLET PO (08:14)
[2021-06-25 08:31] LABS: Hematocrit 38.7 % (35.0-42.0); Hemoglobin 12.4 g/dL (11.7-13.8); Mean Corpuscular Hemoglobin 28.4 pg (27.0-31.0); Mean Corpuscular Volume 88.6 fL (78.0-102.0); Mean Platelet Volume 9.2 fl (9.2-11.8); Platelet Count Result 416 K/mm3 (150-420); Red Blood Count 4.37 M/mm3 (4.20-5.40); Red Cell Distribution Width 12.9 % (11.6-14.4)
[2021-06-25 08:48] LABS: Alanine Aminotransferase 24 U/L (14-59); Albumin Level 3.5 g/dL (3.4-5.0); Alkaline Phosphatase 83 U/L (46-116); Anion Gap 8 mmol/L (8-16); Aspartate Amino Transferase 35 U/L (15-37); Bilirubin,Total 0.3 mg/dL (0.00-1.00); Blood Urea Nitrogen 16 mg/dL (7-18); Calcium 9.2 mg/dL (8.5-10.1); Carbon Dioxide 29 mmol/L (21-32); Chloride 103 mmol/L (98-108); Estimated Glomerular Filt Rate 52; Glucose 114 mg/dL (70-99); Osmolality Calculated 292 mOsm/kg (285-295); Potassium 4.2 mmol/L (3.5-5.1); Sodium 140 mmol/L (136-145); Total Protein 7.6 g/dL (6.4-8.2)
--- NOTE | 2021-06-25 12:15 | PC.NURSE ---
Called [facility] and gave report for discharge. All questions answered. Spoke with Jane.
--- NOTE | 2021-06-25 13:22 | PC.NURSE ---
Pt escorted via wheelchair to front entrance and transferred to private vehicle for discharge. Discharge instructions and med list reviewed with patient's daughter. All questions answered.
--- NOTE | 2021-06-29 11:12 | PC.NURSE ---
Unable to contact for discharge call back.
== END 2021-06-25 13:20 | DRG 948 ==
PROVIDERS: Nurse Practitioner; Admitting Provider Emergency Medicine; PCP Internal Medicine Geriatric Medicine; Visit Provider Emergency Medicine
DX: R53.1 Weakness (principal); N39.0 Urinary tract infection, site not specified; K21.9 Gastro-esophageal reflux disease without esophagitis; G30.9 Alzheimer's disease, unspecified; F02.80 Dementia in other diseases classified elsewhere, unspecified severity, without behavioral disturbance, psychotic disturbance, mood disturbance, and anxiety; M16.11 Unilateral primary osteoarthritis, right hip; M17.11 Unilateral primary osteoarthritis, right knee; F41.9 Anxiety disorder, unspecified; Z95.0 Presence of cardiac pacemaker; Z90.49 Acquired absence of other specified parts of digestive tract
CPT/HCPCS: 36415; 80053; 85027; 97110; 97163; 97165; 97530; 97535; A9270

== ENCOUNTER 2021-10-05 16:23 | Emergency (ER) | payer MEDICARE, SELFPAY ==
--- NOTE | ~2021-10-05 | XR_ITS ---
EXAMINATION: XR knee LT 2V DATE: 10/05/2021 18:55 INDICATION: Nontraumatic left knee pain TECHNIQUE: AP and crosstable lateral views of the left knee were obtained. COMPARISON: None. FINDINGS: Alignment is normal. No fracture. Subtle chondrocalcinosis at the left knee. Tricompartmental osteoar thritis, severe at the patellofemoral compartment with remodeling of the patellar and trochlear artic ular surfaces. Marginal osteophytes in the medial and lateral compartments where there is only mild j oint space narrowing although this could be underestimated on nonweightbearing imaging. No left knee joint effusion. Couple small loose osteochondral bodies versus heterotopic ossicles along the cephala d margin of the patella. IMPRESSION: 1. No left knee joint effusion or acute osseous abnormality. 2. 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 Reviewed, dictated and finalized at [facility]. 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 No left knee joint effusion or acute osseous abnormality. 2. 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
--- NOTE | ~2021-10-05 | CT_ITS ---
EXAMINATION: CT pelvis wo con DATE: 10/05/2021 18:09 INDICATION: Left hip pain TECHNIQUE: High resolution computed tomography (CT) of the pelvis was performed without intravenous c ontrast. Additional sagittal and coronal reconstructions were performed. Automated exposure control a nd iterative reconstruction technique were employed. The dose-length product was 1069.31 mGy-cm. COMPARISON: CT abdomen and pelvis dated 03/13/2021 FINDINGS: Mild lumbar levocurvature with severe spondylosis. Left total hip arthroplasty which appears [place] danielle in near-anatomic alignment. No periprosthetic lucency to suggest loosening or infection. No fract ure. No interval change in a moderate amount of heterotopic ossification in the soft tissues surround ing the cephalad tip of the left greater trochanter. Mild right hip osteoarthritis. No joint effusion s at either hip. Bladder and anteverted uterus are normal. Cholecystectomy clips the gallbladder cassidy a. Bilateral renal cysts including a partially visualized large septated cyst at the right kidney. No bowel obstruction. No free fluid in the pelvis. No pathologically enlarged abdominal or pelvic lymph adenopathy. IMPRESSION: 1. Left total hip arthroplasty in near-anatomic alignment with no evident loosening or acute osseous abnormality. No etiology identified for reported left hip pain. 2. Mild lumbar levocurvature with severe spondylosis. Reviewed, dictated and finalized at location . [facility] LINE REPAIRER IMPRESSION: 1. Left total hip arthroplasty in near-anatomic alignment with no evident loose kain or acute osseous abnormality. No etiology identified for reported left hip pain. 2. Mild lumbar levocurvature with severe spondylosis.
[2021-10-05 17:02] VITALS: BP 156/75; PULSE 83; RESP 20; TEMP 36.7; O2SAT 93
[2021-10-05 17:22] LABS: Appearance Urine Clear (Clear); Bilirubin Urine Negative (Negative); Color Urine Light Yellow (Yellow); Glucose Urine UA Negative (Negative); Ketones Urine Negative (Negative); Leukocyte Esterase Ur Negative LEU/UL (Negative); Nitrate Urine Negative (Negative); Protein Urine Negative (Negative); Urobilinogen Urine 0.2 mg/dL (0.2-1.0); pH Urine 7.5 (5.0-8.0)
[2021-10-05 17:25] LABS: Add Urine Microscopic? YES; Bacteria Urine 2+ /hpf; Blood Urine Trace-Intact (Negative); RBC Urine None seen /hpf (0-2); Squamous Epithelial Cell Urine Few /hpf (Few); WBC Urine None seen /hpf (0-3)
[2021-10-05] MEDS: ACETAMINOPHEN 325 MG TABLET 650 MG PO (18:20)
[2021-10-05] MEDS: cefTRIAXone 1 GM VIAL IM (18:21)
[2021-10-05] MEDS: LIDOCAINE HCL 1% LOCAL INJ 20 ML VIAL (18:21)
--- NOTE | 2021-10-05 18:58 | ED.LOWEXIN ---
HPI - Extremity Injury (Lower) General Chief Complaint: Extremity Injury, Lower Stated Complaint: pain in hip,knee Time Seen by Provider: 10/05/21 16:28 Source: patient and RN notes reviewed Mode of arrival: wheelchair Limitations: no limitations History of Present Illness complaint: other (left hip to knee pain x 2 days.) Onset (ago): day(s) (2) Type of Injury: other (none.) Place: home Severity: moderate Severity scale (1-10): 7 Relieving factors: nothing Exacerbating factors: weight bearing and movement Related Data Home Medications Medication Instructions Recorded Confirmed acetaminophen 1,000 mg PO TID 03/13/21 10/05/21 escitalopram oxalate 20 mg PO DAILY 03/13/21 10/05/21 nortriptyline 50 mg PO HS 03/13/21 10/05/21 risperidone 1.5 mg PO HS 03/13/21 10/05/21 diclofenac sodium 2 g TOPICAL QID 04/28/21 10/05/21 melatonin 10 mg BYMOUTH HS 04/28/21 10/05/21 DAVID-COLACE 1 tab-cap PO DAILY PRN 06/15/21 10/05/21 ascorbate calcium (vitamin C) 500 mg PO BID 10/05/21 10/05/21 cholecalciferol (vitamin D3) 50 mcg PO DAILY 10/05/21 10/05/21 meloxicam 7.5 mg PO DAILY 10/05/21 10/05/21 methenamine hippurate 1 g PO BID 10/05/21 10/05/21 multivit with min-folic acid 1 tablet PO DAILY 10/05/21 10/05/21 [Adult One Daily Multivitamin] pantoprazole 40 mg PO BID 10/05/21 10/05/21 Allergies Allergy/AdvReac Type Severity Reaction Status Date / Time donepezil Allergy Rash Verified 03/13/21 11:03 Review of Systems Review of Systems: All systems reviewed & are unremarkable except as noted in HPI and below PMFSH Past Medical History Medical History Alzheimer's dementia History of delirium related to hospitalizations. Arthritis Severe arthritis of right knee and hip. Gastroesophageal reflux disease History of anxiety Sick sinus syndrome Surgical History Surgical History History of cardiac pacemaker History of cholecystectomy History of surgery on left wrist (~11/2020) ORIF left wrist fracture performed at [facility]. History of tonsillectomy Family History Family History Father Chronic lymphocytic leukemia Mother Liver failure Arthritis Social History Social History Social History: The patient is and lives with her in [place], [place] until her recent hospitalization April 2021. She has since been residing at the [facility]. They have 3 grown children. Caretakers are in the home 24 hours a day. She ambulates with a walker and gait belt with 1 assist. 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 Lifelong nonsmoker. No alcohol or illicit substance use. Her daughter Jane Land is her healthcare power of bankruptcy attorney. Code status: Full code. Smoking status: Never smoker Second hand tobacco smoke exposure: No Alcohol intake: never Substance use: never Substance use type: does not use Gender identity (if verbalized by the patient): Female Sexual Orientation (if Verbalized by the Patient): Straight or Heterosexual Exam Const: General: no acute distress and alert Orientation/consciousness: patient oriented x3 Limitations: no limitations HENMT: Head: normal to inspection Ears: external ears normal and TM's normal bilaterally General nose exam: Normal external nose present and Normal nares present Mouth: Yes lip normal and Yes moist mucous membranes Teeth and gingiva: dentition normal Throat: posterior oropharynx normal Eyes: Visual Barker: normal visual barker by confrontation Conjunctivae: conjunctivae normal Pupils: Equal, round and reactive pupils present EOM: EOMs intact bilaterally Neck: Neck: normal visual inspection and no lymphadenopathy Chest: Chest palpation & inspection: normal inspec
== END 2021-10-05 19:28 | disposition home or self-care (01) ==
PROVIDERS: Emergency Provider Emergency Medicine; PCP Internal Medicine Geriatric Medicine
DX: M25.552 Pain in left hip (principal); M54.32 Sciatica, left side; N39.0 Urinary tract infection, site not specified; K21.9 Gastro-esophageal reflux disease without esophagitis
CPT/HCPCS: 72192; 73560; 81001; 96372; 99283; 99284; A9270; J0696